=== PATIENT | female | born 1970 | race Caucasian/White ===

== ENCOUNTER 2017-01-01 10:22 | Outpatient (CLI) | payer OTHER | END 2017-01-01 10:23 | disposition home or self-care (01) | DX: E05.00 Thyrotoxicosis with diffuse goiter without thyrotoxic crisis or storm (principal) ==

== ENCOUNTER 2017-11-19 20:03 | Outpatient (CLI) | payer OTHER ==
--- NOTE | 2017-11-20 10:42 | Ultrasound Report ---
PELVIC ULTRASOUND: 11/19/2017 CLINICAL INDICATION: Pain. COMPARISON: 09/30/2015. TECHNIQUE: Transabdominal pelvic ultrasound performed for global evaluation. Transvaginal pelvic ultrasound performed for detailed evaluation. Real-time scanning performed and static images obtained. FINDINGS: The uterus is anteverted, measuring 9.8 x 6.1 x 5.0 cm. The endometrial echo complex measures 8 mm. No focal myometrial lesion is present. The right ovary measures 3.1 x 1.7 x 1.7 cm, and appears unremarkable. The left ovary measures 3.0 x 2.5 x 1.9 cm, and demonstrates a follicle. No free fluid is present. IMPRESSION: INCIDENTAL LEFT OVARIAN FOLLICLE. TD: 11/20/2017 10:40
== END 2017-11-19 20:04 | disposition home or self-care (01) ==
LOC: DI 20:03
PROVIDERS: ATTEND Nurse Practitioner Obstetrics & Gynecology
DX: R10.2 Pelvic and perineal pain (principal)
CPT/HCPCS: 76830; 76856

== ENCOUNTER 2017-12-18 16:55 | Outpatient (CLI) | payer OTHER | END 2017-12-18 16:56 | disposition home or self-care (01) | LOC: LAB.R 16:55 | PROVIDERS: ATTEND Nurse Practitioner Obstetrics & Gynecology | DX: N89.8 Other specified noninflammatory disorders of vagina (principal) | CPT/HCPCS: 87480; 87510; 87660 ==

== ENCOUNTER 2017-12-26 09:25 | Outpatient (CLI) | payer OTHER ==
--- NOTE | 2017-12-27 10:00 | Mammography Report ---
DIGITAL SCREENING MAMMOGRAM: 12/26/2017 HISTORY: Routine. Asymmetric breast size, larger on the left. COMPARISON: 07/24/2011. TECHNIQUE: Bilateral digital CC, exaggerated CC, and MLO projections. FINDINGS: The breast tissue is heterogeneously dense. There are no suspicious calcifications, dominant mass, skin thickening. On the left, no architectural distortion. On the right CC view, there is an area of possible architectural distortion in the subareolar breast not confirmed on the exaggerated CC or MLO projection. This most likely represents superimposition of soft tissues, but further evaluation by a true lateral and spot compression views is suggested. IMPRESSION: 1. NEGATIVE LEFT BREAST. BI-RADS CATEGORY 1 - NEGATIVE. 2. NEEDS ADDITIONAL EVALUATION RIGHT BREAST. BI-RADS CATEGORY 0 - NEEDS ADDITIONAL IMAGING EVALUATION. STANDARD QUALIFYING STATEMENTS: 1. This examination was reviewed with the aid of Computer-Aided Detection (CAD). 2. A negative or benign imaging report should not delay biopsy if clinically suspicious findings are present. Consider surgical consultation if warranted. More than 5% of cancers are not identified by imaging. 3. Dense breasts may obscure an underlying neoplasm. TD: 12/27/2017 09:59
== END 2017-12-26 09:26 | disposition home or self-care (01) ==
LOC: DI.S 09:25
PROVIDERS: ATTEND Nurse Practitioner Obstetrics & Gynecology
DX: Z12.39 Encounter for other screening for malignant neoplasm of breast (principal); R92.8 Other abnormal and inconclusive findings on diagnostic imaging of breast
CPT/HCPCS: 77067

== ENCOUNTER 2017-12-26 10:15 | Outpatient (CLI) | payer OTHER ==
[2017-12-26 18:14] LABS: THYROID STIMULATING HORMONE 1.4 uIU/mL (0.34-5.60)
[2017-12-26 18:16] LABS: FREE T4 (FREE THYROXINE) 1.05 ng/dL (0.58-1.64)
== END 2017-12-26 10:16 | disposition home or self-care (01) ==
LOC: LAB.F 10:15
PROVIDERS: ATTEND Nurse Practitioner Family
DX: E05.00 Thyrotoxicosis with diffuse goiter without thyrotoxic crisis or storm (principal)
CPT/HCPCS: 36415; 84439; 84443; 84481

== ENCOUNTER 2017-12-31 10:56 | Emergency (ER) | payer OTHER ==
[2017-12-31 11:22] LABS: BILIRUBIN,URINE NEGATIVE (NEGATIVE); GLUCOSE, URINE (UA) NEGATIVE (NEGATIVE); KETONES,URINE (UA) 15 mg/dL (NEGATIVE); LEUKOCYTE ESTERASE, URINE NEGATIVE (NEGATIVE); NITRITE,URINE NEGATIVE (NEGATIVE); OCCULT BLOOD,URINE SMALL (NEGATIVE); PROTEIN,URINE NEGATIVE (NEGATIVE); UROBILINOGEN,URINE 0.2 (NORMAL) E.U./dL (NORMAL)
[2017-12-31 11:24] LABS: CLARITY,URINE CLEAR (CLEAR); HCG UR QUAL NEGATIVE
[2017-12-31 11:44] LABS: BASOPHILS % (AUTO) 0.2 %; HGB - HEMOGLOBIN 13.4 g/dL (12.0-16.0); LYMPHOCYTES # (AUTO) 1.3 10^3/uL (1.5-3.5); LYMPHOCYTES % (AUTO) 7.9 %; MEAN CORPUSCULAR HEMOGLOBIN 29.3 pg (27.0-31.0); MEAN CORPUSCULAR HGB CONC 33.5 g/dL (32.0-36.0); MEAN CORPUSCULAR VOLUME 87.5 fL (81.0-99.0); MEAN PLATELET VOLUME 10.1 fL (7.9-10.8); MONOCYTES # (AUTO) 1.1 10^3/uL (0.0-1.0); MONOCYTES % (AUTO) 7.1 %; NEUTROPHILS # (AUTO) 13.7 10^3/uL (1.5-6.6); NEUTROPHILS % (AUTO) 84.8 %; PLT - PLATELET COUNT 179 10^3/uL (130-450); RED BLOOD COUNT 4.58 10^6/uL (4.20-5.40); RED CELL DISTRIBUTION WIDTH 15.4 % (12.0-15.0); WHITE BLOOD COUNT 16.1 x10^3/uL (4.8-10.8)
[2017-12-31 11:58] LABS: BACTERIA,URINE Rare /HPF (None Seen); RBC,URINE 0-5 /HPF (0-5); SQUAMOUS EPITHELIAL CELL,UR RARE Squamous (<= Few)
[2017-12-31 12:02] LABS: ALBUMIN 4.7 g/dL (3.2-5.5); ALBUMIN/GLOBULIN RATIO 1.4 (1.0-2.2); BILIRUBIN,TOTAL 0.9 mg/dL (0.2-1.0); CALCIUM 10.1 mg/dL (8.5-10.3); CREATININE 0.7 mg/dL (0.4-1.0); TOTAL PROTEIN 8.1 g/dL (6.7-8.2)
--- NOTE | 2017-12-31 13:51 | ED Physician Documentation ---
PD HPI ABD PAIN - Stated complaint Stated Complaint: LEFT SIDE PX - Chief complaint Chief Complaint: Abd Pain - History obtained from History obtained from: Patient - History of Present Illness Timing - onset: Yesterday Timing - duration: Days Timing - details: Gradual onset, Still present, Waxing and waning Quality: Cramping, Aching, Pain Location: LLQ Radiation: Lower back, Left flank Associated symptoms: No: Fever, Nausea, Vomiting, Dysuria, Loss of appetite Similar symptoms before: No diagnosis (has had evaluation of lower/left abd pain with U/S and endoscopy. No Dx. Seen by PCP 1 1/2 weeks ago and had pelvic with culture results showing BV. Had not noted vag discharge.) Recently seen: Clinic (12/19 had eval with pelvic exam and Dx with gardnerella/ BV. had Rx for Flagyl to pharmacy and she was going to pick it up today.) Review of Systems Constitutional: reports: Myalgias. denies: Fever, Chills Nose: denies: Rhinorrhea / runny nose, Congestion Throat: denies: Sore throat Cardiac: denies: Chest pain / pressure Respiratory: denies: Cough GI: reports: Abdominal Pain, Nausea. denies: Vomiting, Constipation, Diarrhea : denies: Dysuria, Frequency, Discharge, Missed period Skin: denies: Rash, Lesions Neurologic: reports: Generalized weakness. 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 - Present Medications Home Medications: Ambulatory Orders Medication Instructions Recorded Confirmed HYDROcod/ACETAM 5/325 [[place] 5/325] 1 - 2 ea PO Q6H PRN #15 tablet 09/26/15 Levothyroxine [Synthroid] 137 mcg PO DAILY 09/26/15 09/26/15 HYDROcod/ACETAM 5/325 [[place] 5/325] 1 tab PO Q6H PRN #15 tablet 12/31/17 Ondansetron Odt [Zofran] 4 mg TL Q6H PRN #15 tablet 12/31/17 - Allergies Allergies/Adverse Reactions: Allergies Allergy/AdvReac Type Severity Reaction Status Date / Time Penicillins Allergy Rash Verified 09/26/15 13:30 - Social History Does the pt smoke?: Yes Smoking Status: Current every day smoker Does the pt drink ETOH?: Yes Does the pt have substance abuse?: Yes - Family History Family history: reports: Non contributory PD ED PE NORMAL - Vitals Vital signs reviewed: Yes - General General: Alert and oriented X 3, Well developed/nourished, Other (in some discomfort) - HEENT HEENT: Ears normal, Pharynx benign - Neck Neck: Supple, no meningeal sign, No adenopathy - Cardiac Cardiac: RRR, No murmur - Respiratory Respiratory: No respiratory distress - Abdomen Abdomen: Normal bowel sounds, Soft, Non distended, No organomegaly, Other ( tender left lower without guarding nor percussion tenderness. No rebound. ) - Female Female : Deferred (was done in office 1 1/2 weeks ago with Dx Gardnerella/BV) - Derm Derm: Normal color, Warm and dry, No rash - Extremities Extremities: No tenderness to palpate, Normal ROM s pain, No edema, No calf tenderness / cord - Psych Psych: Normal mood, Normal affect Results - Vitals Vitals: Oxygen O2 Source Room air - Labs Labs: Laboratory Tests 12/31/17 12/31/17 12/31/17 11:10 11:41 11:41 WBC 16.1 H RBC 4.58 Hgb 13.4 Hct 40.1 MCV 87.5 MCH 29.3 MCHC 33.5 RDW 15.4 H Plt Count 179 MPV 10.1 Neut # 13.7 H Lymph # 1.3 L [place] # 1.1 H Eos # 0.0 Baso # 0.0 Absolute Nucleated RBC 0.00 Nucleated RBC % 0.0 Sodium 131 L Potassium 3.5 Chloride 100 L Carbon Dioxide 23 Anion Gap 8.0 BUN 8 Creatinine 0.7 Estimated GFR (MDRD) 90 Glucose 126 H Calcium 10.1 Total Bilirubin 0.9 AST 19 ALT 12 Alkaline Phosphatase 52 Total Protein 8.1 Albumin 4.7 Globulin 3.4 Albumin/Globulin Ratio 1.4 Lipase 18 L Urine Color YELLOW Urine Clarity CLEAR Urine pH 6.0 Ur Specific [place] 1.010 Urine Protein NEGATIVE Urine Glucose (UA) NEGATIVE Urine Ketones 15 H Urine Occult Blood SMALL H Urine Nitrite NEGATIVE Urine Bilirubin NEGATIVE Urine Urobilinogen 0.2 (NORMAL) Ur Leukocyte Esterase NEGATIVE Urine RBC 0-5 Urine WBC 0-3 Ur Squamous Epith Cells RARE Squamous Urine Bacteria Rare Ur Microscopic Review INDICATED Urine Culture Comments NOT INDICATED Urine HCG, Qual NEGATIVE - Rads (name of study) abd/pelvic CT Radiology: Prelim report reviewed (left fallopian tube thickening and swelling. No abscess. Colon normal. ) PD MEDICAL DECISION MAKING - ED course Complexity details: re-evaluated patient (improved with pain meds and fluids. ) , considered differential (she had pelvic in office and was Dx with BV. Her pain was higher left abd so concern for colonic cause or even with abscess. CT showed the PID. ), d/w patient Departure - Departure Disposition: 01 Home, Self Care Clinical Impression: Pelvic infection in female Abdominal pain Qualifiers: Abdominal location: left lower quadrant Qualified Code(s): R10.32 - Left lower quadrant pain Condition: Stable Record reviewed to determine appropriate education?: Yes Instructions: Abdominal Pain, ED PID, ED Vaginosis Bacterial Follow-Up: Soheila Roe ARNP [Primary Care Provider] - Prescriptions: HYDROcod/ACETAM 5/325 [[place] 5/325] 1 tab PO Q6H PRN #15 tablet PRN Reason: Pain Ondansetron Odt [Zofran] 4 mg TL Q6H PRN #15 tablet PRN Reason: Nausea / Vomiting Comments: The CT scan showed swelling of the tube and pelvis area on the left particularly but a little on both sides. This would be consistent with the vaginitis infection and involving the uterus and tubes as well. Get the metronidazole prescription your given and take it twice daily as directed. Add ondansetron if needed for nausea and hydrocodone if needed for pain. Recheck if not improving over the next 2-3 days. Discharge Date/Time: 12/31/17 17:23
[2017-12-31] MEDS ORDERED: HYDROmorphone 1 MG/ML CARPUJECT IVP STA ×2 (14:07→16:17)
[2017-12-31] MEDS ORDERED: SODIUM CHLORIDE 0.9% 1,000 ML IV ONE (14:07)
[2017-12-31] MEDS ORDERED: metroNIDAZOLE 500 MG/100 ML 500 MG/100 ML BAG IV ONE (14:07)
[2017-12-31] MEDS ORDERED: KETOROLAC 60 MG/2 ML VIAL IVP STA (14:07)
[2017-12-31] MEDS ORDERED: ONDANSETRON 4 MG/2 ML VIAL IVP STA (14:08)
[2017-12-31] MEDS ORDERED: IOPAMIDOL-300 100 ML VIAL ONE (14:32)
[2017-12-31] MEDS ORDERED: IOPAMIDOL-300 100 ML VIAL IVP ONE (14:40)
--- NOTE | 2017-12-31 16:11 | CT Report ---
EXAM: CT ABDOMEN AND PELVIS EXAM DATE: 12/31/2017 02:50 PM. CLINICAL HISTORY: Left lower abd pain for couple days. COMPARISONS: 09/26/2015 None. TECHNIQUE: Routine helical CT imaging was performed through the abdomen and pelvis. IV contrast: ISOV UE 300 100mL. Enteric contrast: No. Reconstructions: Coronal and sagittal. In accordance with CT protocol optimization, one or more of the following dose reduction techniques w ere utilized for this exam: automated exposure control, adjustment of mA and/or KV based on patient s ize, or use of iterative reconstructive technique. FINDINGS: Lung Bases: Unremarkable. Liver: Normal. No masses. Gallbladder/Bile Ducts: Unremarkable. Spleen: Normal. Pancreas: Normal. Adrenal Glands: Normal. Kidneys: Normal. No masses or hydronephrosis. Peritoneal Cavity/Bowel: No free fluid, free air or adenopathy. No masses. There is scattered coloni c diverticulosis. The appendix is not definitely seen. Pelvic Organs: The bladder is unremarkable. The left greater than right fallopian tubes are dilated a nd fluid-filled with mild wall enhancement. On the left there is increased density in the fat adjacen t to the tube consistent with inflammation 3:60 through 72. Vasculature: No aneurysms or other significant abnormality. Bones: No significant abnormality. Other: None. IMPRESSION: Left greater than right fluid filled dilated fallopian tubes with adjacent inflammation o n the left. Findings are worrisome for hydro/pyosalpinx. Scattered colonic diverticulosis without div erticulitis. Otherwise negative abdomen and pelvic CT. [facility] Referring Provider Line: [phone] SITE ID: [id number]
[2017-12-31] MEDS ORDERED: cefTRIAXone 1 GM in SODIUM CHLORIDE 0.9% MINIBAG 100 ML IV STA (16:17)
[2017-12-31 17:23] VITALS: BP 135/80
== END 2017-12-31 17:23 | disposition home or self-care (01) ==
LOC: ED 10:56
DX: N73.9 Female pelvic inflammatory disease, unspecified (principal); R10.32 Left lower quadrant pain
CPT/HCPCS: 36415; 74177; 80053; 81001; 81025; 83690; 85025; 96361; 96365; 96375; 96376; 99283; J1170; Q9967; 81003; 87086

== ENCOUNTER 2018-01-03 13:59 | Inpatient (IN) | payer OTHER ==
[2018-01-03] MEDS ORDERED: SODIUM CHLORIDE 0.9% 1,000 ML IV ONE (14:32)
[2018-01-03] MEDS ORDERED: ONDANSETRON 4 MG/2 ML VIAL IVP STA (14:32)
[2018-01-03] MEDS ORDERED: HYDROmorphone 1 MG/ML CARPUJECT IVP STA (14:32)
[2018-01-03 14:37] LABS: BILIRUBIN,URINE NEGATIVE (NEGATIVE); GLUCOSE, URINE (UA) NEGATIVE (NEGATIVE); KETONES,URINE (UA) TRACE mg/dL (NEGATIVE); LEUKOCYTE ESTERASE, URINE SMALL (NEGATIVE); NITRITE,URINE NEGATIVE (NEGATIVE); OCCULT BLOOD,URINE TRACE-INTA (NEGATIVE); PROTEIN,URINE NEGATIVE (NEGATIVE); UROBILINOGEN,URINE 0.2 (NORMAL) E.U./dL (NORMAL)
--- NOTE | 2018-01-03 14:38 | ED Physician Documentation ---
PD HPI ABD PAIN - Stated complaint Stated Complaint: LEFT SIDE PX - Chief complaint Chief Complaint: Abd Pain - History obtained from History obtained from: Patient, Family - History of Present Illness Timing - onset: Other (This is a monogamous 47-year-old woman who was seen in the office for bacterial vaginosis, she had increasing pelvic pain and was seen here 4 days ago, she was given Rocephin and a CT scan was done showing potential hydro-or pyosalpinx. Her white count at the time was 16. She was taking Flagyl which she continues to do but the pain worsens and especially in the left pelvis. She has been vomiting but the nausea is actually better today. She has some clearish vaginal discharge.) Review of Systems Ten Systems: 10 systems reviewed and negative Constitutional: reports: Fatigue. 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 - Present Medications Home Medications: Ambulatory Orders Medication Instructions Recorded Confirmed Levothyroxine [Synthroid] 137 mcg PO QDAC 09/26/15 01/03/18 Metoclopramide [Reglan] 10 mg PO ACHS 01/03/18 01/03/18 Omeprazole 20 mg PO BIDAC 01/03/18 01/03/18 - Allergies Allergies/Adverse Reactions: Allergies Allergy/AdvReac Type Severity Reaction Status Date / Time Penicillins Allergy Rash Verified 09/26/15 13:30 - Social History Does the pt smoke?: Yes Smoking Status: Current every day smoker Does the pt drink ETOH?: Yes Does the pt have substance abuse?: Yes - Family History Family history: reports: Non contributory PD ED PE NORMAL - Vitals Vital signs reviewed: Yes - General General: Alert and oriented X 3, No acute distress - HEENT HEENT: PERRL, EOMI - Neck Neck: Supple, no meningeal sign, No bony TTP - Cardiac Cardiac: RRR, No murmur - Respiratory Respiratory: No respiratory distress, Clear bilaterally - Abdomen Abdomen: Other (Tender in the left pelvis) - Female Female : Deferred (See medical decision making, Dr. Garrison will come in and see the patient.) - Back Back: No CVA TTP, No spinal TTP - Derm Derm: Normal color, Warm and dry - Extremities Extremities: No edema, No calf tenderness / cord - Neuro Neuro: Alert and oriented X 3, Normal speech - Psych Psych: Normal mood, Normal affect Results - Vitals Vitals: Vital Signs - 24 hr 01/03/18 01/03/18 14:06 17:26 Temperature 36.9 C 37.3 C Heart Rate 119 H 85 Respiratory 17 14 Rate Blood Pressure 135/94 H 124/73 O2 Saturation 99 97 Oxygen O2 Source Room air - Labs Labs: Microbiology 01/03/18 16:50 Wet Prep - Final Cervix Laboratory Tests 01/03/18 01/03/18 01/03/18 14:15 14:15 14:49 WBC 7.6 RBC 3.91 L Hgb 11.6 L Hct 34.3 L MCV 87.6 MCH 29.8 MCHC 34.0 RDW 15.1 H Plt Count 172 MPV 10.5 Neut # 5.8 Lymph # 1.1 L [place] # 0.6 Eos # 0.0 Baso # 0.0 Absolute Nucleated RBC 0.00 Nucleated RBC % 0.0 Sodium Potassium Chloride Carbon Dioxide Anion Gap BUN Creatinine Estimated GFR (MDRD) Glucose Calcium Total Bilirubin AST ALT Alkaline Phosphatase Total Protein Albumin Globulin Albumin/Globulin Ratio Lipase Urine Color YELLOW Urine Clarity CLEAR Urine pH 6.0 Ur Specific [place] 1.015 1.015 Urine Protein NEGATIVE Urine Glucose (UA) NEGATIVE Urine Ketones TRACE Urine Occult Blood TRACE-INTA Urine Nitrite NEGATIVE Urine Bilirubin NEGATIVE Urine Urobilinogen 0.2 (NORMAL) Ur Leukocyte Esterase SMALL H Urine RBC 0-5 Urine WBC 6-10 H Ur Squamous Epith Cells MOD Squamous H Urine Bacteria None Seen Urine Mucus Few Strands Ur Microscopic Review INDICATED Urine Culture Comments NOT INDICATED Urine HCG, Qual NEGATIVE 01/03/18 14:49 WBC RBC Hgb Hct MCV MCH MCHC RDW Plt Count MPV Neut # Lymph # [place] # Eos # Baso # Absolute Nucleated RBC Nucleated RBC % Sodium 133 L Potassium 3.2 L Chloride 103 Carbon Dioxide 24 Anion Gap 6.0 BUN 5 L Creatinine 0.6 Estimated GFR (MDRD) 107 Glucose 121 H Calcium 9.3 Total Bilirubin 0.5 AST 11 ALT 10 Alkaline Phosphatase 47 Total Protein 6.7 Albumin 3.7 Globulin 3.0 Albumin/Globulin Ratio 1.2 Lipase 27 Urine Color Urine Clarity Urine pH Ur Specific [place] Urine Protein Urine Glucose (UA) Urine Ketones Urine Occult Blood Urine Nitrite Urine Bilirubin Urine Urobilinogen Ur Leukocyte Esterase Urine RBC Urine WBC Ur Squamous Epith Cells Urine Bacteria Urine Mucus Ur Microscopic Review Urine Culture Comments Urine HCG, Qual - Rads (name of study) Pelvic sono Radiology: Prelim report reviewed (Bilateral tubal fluid collections,) PD MEDICAL DECISION MAKING - ED course ED course: 47-year-old woman with apparent PID, potential tubo-ovarian abscess based on previous imaging who has failed outpatient treatment. I spoke with Dr. Garrison, the on-call brake repair supervisor run 2:35 PM and he will come and see the patient, request labs and ultrasound in the interim. After his evaluation he requested cefoxitin and doxycycline which were ordered by me, he plans to take the patient to the operating room for definitive evaluation and treatment. Departure - Departure Disposition: ED Transfer to [facility] Clinical Impression: PID (acute pelvic inflammatory disease), TOA (tubo-ovarian abscess) Condition: Stable Discharge Date/Time: 01/03/18 18:25
[2018-01-03 14:41] LABS: CLARITY,URINE CLEAR (CLEAR); HCG UR QUAL NEGATIVE
[2018-01-03 15:05] LABS: BASOPHILS % (AUTO) 0.3 %; EOSINOPHILS % (AUTO) 0.3 %; HGB - HEMOGLOBIN 11.6 g/dL (12.0-16.0); LYMPHOCYTES # (AUTO) 1.1 10^3/uL (1.5-3.5); LYMPHOCYTES % (AUTO) 14.3 %; MEAN CORPUSCULAR HEMOGLOBIN 29.8 pg (27.0-31.0); MEAN CORPUSCULAR VOLUME 87.6 fL (81.0-99.0); MEAN PLATELET VOLUME 10.5 fL (7.9-10.8); MONOCYTES # (AUTO) 0.6 10^3/uL (0.0-1.0); MONOCYTES % (AUTO) 7.8 %; NEUTROPHILS # (AUTO) 5.8 10^3/uL (1.5-6.6); NEUTROPHILS % (AUTO) 77.3 %; PLT - PLATELET COUNT 172 10^3/uL (130-450); RED BLOOD COUNT 3.91 10^6/uL (4.20-5.40); RED CELL DISTRIBUTION WIDTH 15.1 % (12.0-15.0); WHITE BLOOD COUNT 7.6 x10^3/uL (4.8-10.8)
[2018-01-03 15:11] LABS: ALBUMIN 3.7 g/dL (3.2-5.5); ALBUMIN/GLOBULIN RATIO 1.2 (1.0-2.2); BILIRUBIN,TOTAL 0.5 mg/dL (0.2-1.0); CALCIUM 9.3 mg/dL (8.5-10.3); CREATININE 0.6 mg/dL (0.4-1.0); TOTAL PROTEIN 6.7 g/dL (6.7-8.2)
[2018-01-03 15:22] LABS: BACTERIA,URINE None Seen /HPF (None Seen); MUCUS,URINE Few Strands; RBC,URINE 0-5 /HPF (0-5); SQUAMOUS EPITHELIAL CELL,UR MOD Squamous (<= Few)
[2018-01-03] MEDS ORDERED: cefOXitin 2 GM in SODIUM CHLORIDE 0.9% MINIBAG 100 ML IV STA (16:24)
[2018-01-03] MEDS ORDERED: DOXYCYCLINE INJ 100 MG in SODIUM CHLORIDE 0.9% MINIBAG 100 ML IV STA (16:25)
[2018-01-03] MEDS ORDERED: BUPIVACAINE 0.5%-EPI 1:200000 PF 10 ML VIAL ONE ×2 (17:37→20:42)
[2018-01-03] MEDS ORDERED: METHYLENE BLUE 0.5% 50 MG/10 ML AMPULE ONE (17:37)
[2018-01-03] MEDS ORDERED: LACTATED RINGERS 1,000 ML IV ONE ×4 (18:30→22:50)
[2018-01-03] MEDS ORDERED: fentaNYL 250 MCG/5 ML VIAL IVP ONE (19:00)
[2018-01-03] MEDS ORDERED: MORPHINE 10 MG/ML VIAL IVP ONE (19:00)
[2018-01-03] MEDS ORDERED: LIDOCAINE-MPF 2% 5 ML VIAL IM ONE (19:00)
[2018-01-03] MEDS ORDERED: ROCURONIUM 50 MG/5 ML VIAL IVP ONE (19:00)
[2018-01-03] MEDS ORDERED: PROPOFOL 200 MG/20 ML VIAL IVP ONE (19:00)
[2018-01-03] MEDS ORDERED: BUPIVACAINE 0.25%-EPI 1:200000 PF 30 ML VIAL SUBQ ONE (21:08)
[2018-01-03] MEDS ORDERED: ESTROGENS, CONJUGATED CREAM 30 GM TUBE VG ONE (21:08)
[2018-01-03] MEDS ORDERED: ESTROGENS, CONJUGATED CREAM 30 GM TUBE ONE (21:53)
--- NOTE | 2018-01-03 22:08 | HISTORY & PHYSICAL EXAMINATION ---
DATE OF SERVICE: 01/03/2018 Physician: Deric Garrison MD EMERGENCY ROOM CONSULTATION AND ADMIT HISTORY AND PHYSICAL EXAMINATION REQUESTING CONSULTATION: Manny Underwood MD, emergency department. DIAGNOSES 1. Severe left lower quadrant pain. 2. Pyosalpinx. 3. Uterine and generalized pelvic tenderness. 4. Associated nausea. INTENDED PROCEDURES 1. Laparoscopy, followed by LAVH and possible BSO. 2. Placement of abdominal drain. 3. Cystoscopy. HISTORY OF PRESENT ILLNESS: Patient is a 47-year-old 3, para 3 woman ( status post x2), who reports to the emergency room complaining of severe pelvic pain, predominantly left-sided, and associated nausea. She reports night sweats and low grade fever. She has anorexia and the last time she ate or drank anything was at 10 a.m. She was originally evaluated by Brielle Chaparro for vaginal discharge. It was presumed to be bacterial vaginosis and was treated with Flagyl. This was ineffective and her symptoms steadily escalated. On the 30 of December, she was seen in the ED for pelvic pain. CT showed potential hydrosalpinx/pyosalpinx, with a white count of 16. She was given Rocephin plus continued oral Flagyl. She notes nausea for the last few days and had nonbloody , nonbilious vomiting. She reports a nonfoul vaginal discharge, but no recent uterine bleeding. PAST SURGICAL HISTORY: section as noted above. Denies any abdominal, GI or urologic surgery. PAST MEDICAL HISTORY: Graves disease, well controlled with Synthroid. Gastroparesis w endoscopy. ALLERGIES 1. PENICILLIN. 2. SENSITIVE TO LATEX. MEDICATIONS 1. Levothyroxine 137 mcg q day AC. 2. Reglan 10 mg p.o. REVIEW OF SYSTEMS CONSTITUTIONAL: Positive night sweats, fevers, low grade fever, and fatigue. CARDIOVASCULAR: Denies chest pain, pressure, or palpitations. RESPIRATORY: Denies dyspnea, cough. GASTROINTESTINAL: Nausea and vomiting, but no diarrhea. Abdominal pain as noted before. UROLOGIC: Denies stress urinary incontinence or evidence of UTI. MUSCULOSKELETAL: Negative. No swelling or swollen joints. NEUROLOGIC: Negative. Occasional headache. LYMPHATIC: Negative. SKIN: Negative. FAMILY HX: Noncontributary SOCIAL HX: PHYSICAL EXAMINATION GENERAL: The patient lying still in bed, uncomfortable. VITAL SIGNS: Temperature 36.9, heart rate 119, respirations 117, blood pressure 135/94, saturation 99. HEENT: Supple neck. No thyromegaly or thyroid tenderness. Dentition in repair. LUNGS: Clear to auscultation. CARDIAC: Regular flow murmur, tachycardic. No rub or gallop. ABDOMEN: No hepatosplenomegaly. Left lower quadrant tenderness, moderate to severe. Peritoneal signs. Right lower quadrant tenderness, mild. No obvious herniation. No CVA tenderness. GENITOURINARY: External genitalia, no lesions. VAGINA: No blood but a pool of copious yellow, foul pus in a posterior fornix. CERVIX: No lesions, cervical motion tenderness. UTERUS: Enlarged 7 weeks size, very tender & fixed. ADNEXA: The left adnexal tenderness not as much on the right. RECTOVAGINAL: Exam not done. PSYCHIATRIC: Normal mood, in pain. NEUROLOGIC: Alert, oriented, normal speech. Moves all 4 extremities well. No evident numbness. EXTREMITIES: No edema, calf tenderness, or cord. DERMATOLOGIC: No obvious rash. Warm, dry. LABORATORY DATA: Current: Sodium low at 133, potassium 3.2, glucose 121, creatinine 0.6. Urine pending. Hemoglobin 11.6, white count 7.6, platelets 172. ASSESSMENT: The patient has, in all likelihood, pelvic abscess and possibly ruptured on the left. Antibiotics alone will be ineffective. CT and ultrasound document the abscesses. Best course of action is surgical. At very minimum, tubes must be removed and possibly left ovary. Given that her uterus is very tender and there is copious pus per cervix, hysterectomy would benefit and prevent second surgery. I recommended to place a drainage tube into the pelvis as well. Delay in surgery increases chances of septic shock & possible . PLAN: I explained stepwise progression of treatment to the patient. She strongly favors a hysterectomy because she, "I don't want to come back again." Her pain has been a major burden. Risks of surgery were explained, inclusive of anesthesia reaction, blood loss, transfusion, continued infection or spread of infection, and damage to bowels and urinary tract. The patient realizes that excision and drainage is preferred method of treating abscess. She also is aware that if this is ineffectual, we may move her to a higher level of care. NOTE TO [facility]: I do not anticipate the patient to stay more than 96 hours. IV antibiotics have already been started. TD: 01/03/2018 22:07 JULIANNA
[2018-01-03] MEDS ORDERED: ONDANSETRON 4 MG/2 ML VIAL ONE (22:20)
[2018-01-03] MEDS ORDERED: ACETAMINOPHEN 1,000 MG/100 ML 100 ML IV ONE (22:35)
[2018-01-03] MEDS ORDERED: ZOLPIDEM 5 MG TABLET PO PRN (22:49)
[2018-01-03] MEDS ORDERED: SCOPOLAMINE PATCH TOP SCH (23:00)
[2018-01-03] MEDS ORDERED: AMPICILLIN/SULBACTAM 3 GM in SODIUM CHLORIDE 0.9% MINIBAG 100 ML IV SCH (23:00)
[2018-01-03] MEDS ORDERED: KETOROLAC 30 MG/ML VIAL IVP SCH (23:00)
--- NOTE | 2018-01-03 23:22 | OPERATIVE REPORT ---
Operative Report - General Procedure Date: 01/03/18 Planned Procedure: Diagnostic laparoscopy with probable bilateral salpingo- oophorectomy and LA Pre-Op Diagnosis: Severe left lower quadrant and pelvic pain; probable tubal abscesses; Procedure Performed: Laparoscopic assisted vaginal hysterectomy with bilateral salpingo-oophorectomy ; placement of pelvic vaginal drain; cystoscopy Post Op Diagnosis: Ruptured bilateral tubal abscesses with free pus in the abdomen; extensive - Procedure Note Primary Surgeon: Deric Garrison MD Secondary Surgeon: Deric Ramirez MD Anesthesia Provider: Efrain Nettles MD Anesthesia Technique: General ET tube Pathology: Tubes, uterus, and multiple cultures IV Fluids (mL): 2,100 Estimated Blood Loss (mL): 400 Urine Output (mL): 1,000 Drain/Tube Type: T-tube (vaginal T-tube to suction bulb; Ferreira catheter) Complications: None
[2018-01-03] MEDS ORDERED: GENTAMICIN PER PHARMACY (DO NOT LOAD) IV SCH (23:45)
[2018-01-04] MEDS ORDERED: SODIUM CHLORIDE 0.9% IV SCH ×2
[2018-01-04] MEDS ORDERED: GENTAMICIN IV SCH ×2
[2018-01-04] MEDS: LACTATED RINGERS 1,000 ML IV SCH ×4 (00:02→22:29)
[2018-01-04] MEDS: LEVOTHYROXINE 125 MCG TABLET PO SCH ×2 (00:49→09:14)
[2018-01-04] MEDS ORDERED: GENTAMICIN 80 MG/2 ML VIAL ONE (01:26)
[2018-01-04] MEDS: oxyCODONE 5 MG TABLET PO PRN ×2 (02:16→09:36)
--- NOTE | 2018-01-04 02:19 | OPERATIVE REPORT ---
DATE OF SERVICE: 01/03/2018 Physician: Deric Garrison MD PREOPERATIVE DIAGNOSES 1. Severe left lower quadrant and pelvic pain. 2. Pyosalpinx. 3. Prior sections x3. 4. Gastroparesis. 5. Graves disease. POSTOPERATIVE DIAGNOSES 1. Ruptured bilateral tubal abscesses with free pus in the abdomen. 2. Extensive adhesions. NAME OF PROCEDURE 1. Laparoscopic-assisted vaginal hysterectomy with bilateral salpingo- oophorectomy. 2. Placement of pelvic floor drain, exiting the vagina. 3. Cystoscopy. 4. Lavage of the abdominal and pelvic contents. 5. Lysis of dense and extensive adhesions PRIMARY SURGEON: Deric Garrison MD, FACOG, FICS SECOND SURGEON: Deric Saenz MD, FACOG, TACKER OFF: Efrain Nettles MD ANESTHESIA TYPE: General, ET tube placed. PATHOLOGY: Tubes, uterus and ovaries sent to Pathology with multiple cultures. IV FLUIDS: 2100. ESTIMATED BLOOD LOSS: 400. ESTIMATED URINE OUTPUT: 1000. DRAINS 1. Ferreira. 2. T-tube placed through vagina, draining the pelvic cavity, attached to bulb suction. COMPLICATIONS: None. FINDINGS: External genitalia finds no lesions. In the posterior fornix of the vagina, there is a pool of foul-smelling pus. There is cervical motion tenderness and uterine tenderness. Uterus is fixed. There is a mass in the left adnexa that is very tender with peritoneal signs. Right adnexa also is tender. Reference H and P. At the time of laparoscopy, there is extensive pelvic inflammatory disease and abscesses. The left ovary was completely encased in bulbous abscess, including the tube and pelvic side wall and portions of the colon. There are multiple loculations of pus in the anterior and posterior cul-de-sac. There are adhesions forming the block on the left side and similar problem on the right. There is free pus flowing from both tubes. The uterus is pale and patulous. The liver has fatty changes. There is no Bgge-Nyrq-Ryhenp. Appendix appears normal without inflammation. Cystoscopy confirms free right and left urine flow from the ureteral orifices. There is no incursion into the bladder. TECHNIQUE: Prior to the procedure, I reviewed my working diagnosis of being pelvic abscesses and proposed surgical procedures to the patient and her . She is aware of the possibility of blood loss, transfusion, continued infection, prolonged hospitalization, ICU admission or transfer, damage to adjacent structures such as intestine or urinary tract and anesthesia reaction. These risks were enumerated and explained. Conservative therapy with more antibiotics poses a danger of sepsis and extremely poor outcome. We discussed a limited surgical intervention, but given the clinical exam, the patient desires complete therapy. Informed consent was signed and witnessed. The patient was brought to the operating room and placed on the table in the supine position. She was uneventfully induced and intubated. She was moved to the [facility] She was prepped and draped in the customary sterile fashion and Ferreira was placed. A timeout procedure was done per protocol. A HUMI uterine manipulator then was placed. A small incision was placed under the umbilical skin fold, and the 5 mm Visiport trocar was driven into the abdomen uneventfully under direct visualization. The abdomen was then insufflated with CO2 gas at 12 mm. Next, right and left 5 mm trocars were inserted. A curtain of omental adhesions adherent to the anterior abdominal wall was then desiccated and divided to provide better access. There was free pus in the anterior cul-de-sac, which was suctioned and sent for culture. Additionally, there was pus in the right and left adnexal areas. We began the procedure with a left salpingo-oophorectomy. Using a LigaSure and blunt dissection, the adherent tubal structures and ovary were lysed off of the pelvic sidewall. Once mobilized, the ovarian vessels and infundibulopelvic ligament were doubly desiccated and divided. We began a stepwise approach down towards the round ligament. The anatomy was quite distorted. We traced the ureter along the left pelvic sidewall. A small feeding vessel was noted, was desiccated and divided. Eventually, we mobilized the tubal abscess complex up and out of the path of dissection. The RLQ port was then converted to 10-12 mm and a catch bag used to remove the L tubo-ovarian abscess. Broad ligaments were divided, and progress was tedious due to the thick adhesions and distorted landmarks. Eventually, the left bladder flap was developed. We stayed as close as possible to the cervical barrel. The left uterine vessels were desiccated and divided. At this time, we turned attention to the right side. Initially, we intended to save the right ovary. Using blunt and sharp dissection, the tubal abscess was dissected away from the pelvic sidewall. The tissue was very hyperemic and oozed. We desiccated a but the bleeding could not be effectively controlled. At this point, the right ovary was sacrificed to get better control of the bleeding. Right uterine vessels and infundibulopelvic ligament were desiccated and divided. We continued our sharp and blunt dissection down to the round ligament. The broad ligament leaves were then desiccated and divided. Once the uterine vessels were reached, they were likewise desiccated and divided. Using blunt and sharp dissection, the bladder was advanced down the cervix. During the entire procedure, at multiple locations, the operative field was lavaged and suctioned free. This revealed many small bleeders from the hyperemic tissue. These were desiccated w Ligasure in a sequential fashion. We turned to the vaginal phase. The abdomen was desufflated of CO2 gas and the legs placed in the high dorsal lithotomy position. Two Lenka clamps were placed on the cervical barrel and traction applied, and 10 mL 0.25% Marcaine with epinephrine was injected around the barrel in small aliquots to create a liquid tourniquet. The barrel of the cervix then was circumscribed with electrocautery. Using blunt and sharp dissection, the anterior and posterior cul-de-sacs were developed. The posterior cul-de-sac was sharply entered, and a Rory speculum was placed. The anterior cul-de-sac was sharply entered, and a right angle retractor was placed to hold bladder and ureters out of harm's way. The base of the uterosacral ligaments were clamped, transected and transfixed with 0 Vicryl. We worked up the uterosacral and cardinal ligaments in a stepwise fashion. All pedicles were clamped, transected and transfixed with 0 Vicryl. Finally, the uterus was free and slipped through the colpotomy wound. Due to the amount of adhesions and ragged peritoneum, there was nothing to reperitonealize on the pelvic floor. We inserted a T-tube drain. Next, the vaginal cuff was reefed with an interlocking stitch of 0 chromic. There was no bleeding observed. The corners of the cuff were then plicated to the uterosacral ligament pedicles. The vagina then was plugged with a glove to create a seal. The abdomen was reinsufflated with CO2 gas, and all operative sites were inspected. Reference photographs. The surgical sites were hemostatically secure. Approximately 500 mL of sterile saline was left in the abdomen. At this point, the 12 mm right lower quadrant port was closed with the Chato-Daphne device using 0 Vicryl. All trocar sleeves were pulled under direct visualization. There was no back bleeding. The abdomen was completely drained of CO2. Ferreira was discontinued and a 70-degree video cystoscope was inserted. The bladder was systematically inspected. There was found to be no incursions. Both right and left ureters had free flow of clear urine. At this point, the Ferreira was replaced into the bladder. The vagina was packed with Kerlix saturated with Premarin. All sponge, needle and instrument counts were confirmed as correct. The patient was uneventfully awakened from general anesthesia and sent to the recovery room in good condition. The patient will continue on IV antibiotics, ampicillin and gentamicin. The patient and were appraised of intraoperative events. TD: 01/04/2018 02:18 JULIANNA
[2018-01-04] MEDS ORDERED: ONDANSETRON 4 MG/2 ML VIAL ONE ×2 (03:52→03:56)
[2018-01-04] MEDS: ONDANSETRON 4 MG/2 ML VIAL IVP PRN ×3 (03:54→16:11)
[2018-01-04] MEDS ORDERED: PROMETHAZINE INJ 25 MG in SODIUM CHLORIDE 0.9% 50 ML IV PRN ×2 (05:38→12:56)
[2018-01-04] MEDS ORDERED: PROMETHAZINE 25 MG/1 ML VIAL ONE (05:39)
[2018-01-04 05:40] LABS: BASOPHILS % (AUTO) 0.1 %; HGB - HEMOGLOBIN 10.1 g/dL (12.0-16.0); LYMPHOCYTES # (AUTO) 0.5 10^3/uL (1.5-3.5); MEAN CORPUSCULAR HGB CONC 32.9 g/dL (32.0-36.0); MONOCYTES # (AUTO) 0.8 10^3/uL (0.0-1.0); MONOCYTES % (AUTO) 7.2 %; NEUTROPHILS % (AUTO) 88.7 %; PLT - PLATELET COUNT 174 10^3/uL (130-450); RED BLOOD COUNT 3.49 10^6/uL (4.20-5.40); RED CELL DISTRIBUTION WIDTH 15.2 % (12.0-15.0); WHITE BLOOD COUNT 11.3 x10^3/uL (4.8-10.8)
[2018-01-04] MEDS ORDERED: PROMETHAZINE 25 MG/1 ML VIAL IM STA ×2 (05:42→05:47)
[2018-01-04] MEDS: SODIUM CHLORIDE FLUSH 0.9% 10 ML SYRINGE ONE ×2 (05:53→05:54)
[2018-01-04] MEDS: SIMETHICONE CHEW 80 MG TABLET PO SCH ×3 (05:54→21:00)
[2018-01-04 05:56] LABS: ALBUMIN 3.3 g/dL (3.2-5.5); ALBUMIN/GLOBULIN RATIO 1.3 (1.0-2.2); ALKALINE PHOSPHATASE 42 IU/L (42-121); ALT ALANINE AMINOTRANSFERASE < 10 IU/L (10-60); AST ASPARTATE AMINOTRANSFERASE 10 IU/L (10-42); BILIRUBIN,TOTAL 0.4 mg/dL (0.2-1.0); BUN - BLOOD UREA NITROGEN < 5 mg/dL (6-20); CALCIUM 8.7 mg/dL (8.5-10.3); CARBON DIOXIDE - CO2 23 mmol/L (21-32); CHLORIDE 103 mmol/L (101-111); CREATININE 0.6 mg/dL (0.4-1.0); GFR - MDRD 107 (>89); GLUCOSE 139 mg/dL (70-100); SODIUM 133 mmol/L (135-145); TOTAL PROTEIN 5.8 g/dL (6.7-8.2)
[2018-01-04] MEDS: METOCLOPRAMIDE 10 MG TABLET PO SCH ×4 (06:47→22:46)
[2018-01-04] MEDS: KETOROLAC 30 MG/ML VIAL IVP SCH ×4 (06:50→23:54)
--- NOTE | 2018-01-04 09:08 | PROVIDER PROGRESS NOTE ---
Subjective - General Admit Date: 01/03/18 Procedure Date: 01/03/18 Post Op Days: 1 Procedure Performed: LAVH, BSO, placement of pelvic drain, lysis of extensive and dense adhesion - Review of Systems Wound/Incisions: positive: Dressing dry and intact Drain Type: Ferreira functional, pelvic floor drain functional Drain Output Description: Pelvic drain serosanguineous fluid, Ferreira clear urine General: positive: Fatigue, Malaise HEENT: positive: No symptoms, Headaches (Mild headache) Pulmonary: positive: No symptoms Cardiovascular: positive: No symptoms Gastrointestinal: positive: Nausea, Abdominal pain (Abdominal pain appropriate for pathology and procedure), Flatus Genitourinary: positive: Other (Pressure from vaginal packing) Musculoskeletal: positive: No symptoms Skin: positive: No symptoms Psychiatric: positive: No symptoms Objective - Patient Data Vital Signs: Vital Signs x48h Temp Pulse Resp BP Pulse Ox 01/04/18 08:07 98.2 F 72 16 130/83 H 99 01/04/18 05:21 87 16 122/70 97 01/04/18 02:04 98.4 F 74 14 126/65 100 01/04/18 01:08 78 16 108/65 97 Weight: Weight 01/02/18 01/03/18 01/04/18 23:59 23:59 23:59 Weight (kg) 81.647 kg Intake & Output: Intake and Output Totals x24h 01/02/18 01/03/18 01/04/18 23:59 23:59 23:59 Intake Total 100 323.5 Output Total 950 Balance 100 -626.5 - Lab Results Lab Results: 01/04/18 05:15 01/04/18 05:15 Other Lab Results: Lab Results x24hrs 01/04/18 01/04/18 Range/Units 05:15 05:15 WBC 11.3 H (4.8-10.8) x10^3/uL RBC 3.49 L (4.20-5.40) 10^6/uL Hgb 10.1 L (12.0-16.0) g/dL Hct 30.7 L (37.0-47.0) % MCV 88.0 (81.0-99.0) fL MCH 29.0 (27.0-31.0) pg MCHC 32.9 (32.0-36.0) g/dL RDW 15.2 H (12.0-15.0) % Plt Count 174 (130-450) 10^3/uL MPV 10.0 (7.9-10.8) fL Neut # 10.0 H (1.5-6.6) 10^3/uL Lymph # 0.5 L (1.5-3.5) 10^3/uL [place] # 0.8 (0.0-1.0) 10^3/uL Eos # 0.0 (0.0-0.7) 10^3/uL Baso # 0.0 (0.0-0.1) 10^3/uL Absolute Nucleated RBC 0.00 x10^3/uL Nucleated RBC % 0.0 /100WBC Sodium 133 L (135-145) mmol/L Potassium 3.3 L (3.5-5.0) mmol/L Chloride 103 (101-111) mmol/L Carbon Dioxide 23 (21-32) mmol/L Anion Gap 7.0 (6-13) BUN < 5 L (6-20) mg/dL Creatinine 0.6 (0.4-1.0) mg/dL Estimated GFR (MDRD) 107 (>89) Glucose 139 H (70-100) mg/dL Calcium 8.7 (8.5-10.3) mg/dL Total Bilirubin 0.4 (0.2-1.0) mg/dL AST 10 (10-42) IU/L ALT < 10 L (10-60) IU/L Alkaline Phosphatase 42 (42-121) IU/L Total Protein 5.8 L (6.7-8.2) g/dL Albumin 3.3 (3.2-5.5) g/dL Globulin 2.5 (2.1-4.2) g/dL Albumin/Globulin Ratio 1.3 (1.0-2.2) - Current Medications Current Medications: Current Medications Generic Name Dose Route Start Last Admin Trade Name Freq PRN Reason Stop Dose Admin Lactated Ringer's 1,000 mls @ 100 mls/hr 01/03/18 23:00 01/04/18 00:02 Lr IV 100 mls/hr .Q10H PARRISH Administration Gentamicin Sulfate 140 mg/ 103.5 mls @ 100 mls/hr 01/04/18 00:00 01/04/18 03: 05 Sodium Chloride IV Infused Q12H PARRISH Infusion Ketorolac Tromethamine 30 mg 01/04/18 07:00 01/04/18 06:50 Toradol Inj IVP 01/09/18 06:59 30 mg Q6H PARRISH Administration Levothyroxine Sodium 125 mcg 01/03/18 23:45 01/04/18 00:49 Synthroid PO Not Given QDAC PARRISH Metoclopramide HCl 10 mg 01/04/18 07:00 01/04/18 06:47 Reglan PO Not Given ACHS [facility] Ondansetron HCl 8 mg 01/04/18 03:51 01/04/18 03:54 Zofran Inj IVP 8 mg Q4HR PRN Administration Nausea / Vomiting Oxycodone HCl 5 mg 01/03/18 22:49 01/04/18 02:16 Roxicodone PO 5 mg Q4HR PRN Administration PAIN Ranitidine HCl 150 mg 01/03/18 23:45 01/04/18 00:49 Zantac PO Not Given DAILY [facility] Scopolamine HBr 1 patch 01/03/18 23:00 01/03/18 23:59 Transderm-Scop TOP 01/06/18 23:01 1 patch Q72H PARRISH Administration Simethicone 80 mg 01/04/18 06:00 01/04/18 05:54 Mylicon PO 80 mg TID PARRISH Administration Physical Exam - Physical Exam General: positive: No acute distress, Alert HEENT: positive: Moist mucous membranes Neck: positive: Supple w/out meningeal sx Cardiac: positive: Regular Rate (No significant murmur) Resipratory: positive: Clear to ausultation eunice Abdomen: positive: Normal Bowel sounds, Tender to palpation (Appropriate tenderness) Female : positive: Normal external, Other (Vaginal T-tube present) Extremities: positive: Normal ROM, No pedal edema, Non tender Skin: positive: Warm and dry Neurologic: positive: Alert and Oriented X 3, Normal Sensation, Normal Speech PSYCH: positive: Anxious (Mild anxiety) Assessment/Plan - Assessment/Plan Assessment: Patient underwent an extensive laparoscopic surgery to treat ruptured tubal abscesses that resulted in 400 cc blood loss. Thus far the patient is well compensated however she is not ambulated showered or done any daily activities. Patient seems alert and strong enough to begin ambulation and toileting. Plan: PLAN * Discontinue Ferreira catheter this morning * Hep-Lock IV port * Continue pelvic drain via vaginal tube * Continue ampicillin and gentamicin, may discontinue tonight if patient remains afebrile * Encourage ambulation and shower * Recheck CBC and CMP in the morning. * If patient does not tolerate ambulation, consider transfusion of 2 units packed red blood cells
[2018-01-04] MEDS: DOCUSATE SODIUM 100 MG CAPSULE PO SCH ×2 (09:13→21:00)
[2018-01-04] MEDS: AMPICILLIN/SULBACTAM 3 GM in SODIUM CHLORIDE 0.9% MINIBAG 100 ML IV SCH ×3 (09:15→20:08)
--- NOTE | 2018-01-04 09:30 | Ultrasound Report ---
PELVIC ULTRASOUND: 01/03/2018 CLINICAL INDICATION: Pelvic pain. COMPARISON: CT 12/31/2017. TECHNIQUE: Transabdominal pelvic ultrasound performed for global evaluation. Transvaginal pelvic ultrasound performed for detailed evaluation. Real-time scanning performed and static images obtained. FINDINGS: The uterus is anteverted, measuring 10.8 x 6.4 x 5.2 cm. The endometrial echo complex measures 11 mm. No focal myometrial lesion is seen. Bilateral complex tubal fluid collections are seen, similar to CT, with the right measuring 4.7 x 3.4 x 2.7 cm and the left measuring 4.7 x 1.9 x 1.9 cm. No free fluid is identified. IMPRESSION: NO SIGNIFICANT INTERVAL CHANGE IN BILATERAL FLUID FILLED FALLOPIAN TUBES. NO FREE FLUID. TD: 01/04/2018 09:29
[2018-01-04] MEDS ORDERED: SODIUM CHLORIDE FLUSH 0.9% 10 ML SYRINGE ONE ×7 (10:35→23:54)
[2018-01-04] MEDS ORDERED: PANTOPRAZOLE 40 MG TABLET PO SCH (11:00)
[2018-01-04] MEDS: GENTAMICIN 370 MG in SODIUM CHLORIDE 0.9% 100ML 100 ML IV SCH (12:21)
[2018-01-04] MEDS ORDERED: HYDROmorphone 1 MG/ML CARPUJECT IVP PRN (12:54)
[2018-01-04] MEDS ORDERED: PROMETHAZINE 25 MG/1 ML VIAL IM PRN (13:58)
[2018-01-04] MEDS: ACETAMINOPHEN 1,000 MG/100 ML 100 ML IV SCH ×2 (14:15→18:51)
[2018-01-04] MEDS ORDERED: MAGNESIUM HYDROXIDE 2,400 MG/30 ML UDC PO PRN (18:49)
--- NOTE | 2018-01-04 19:00 | PROVIDER PROGRESS NOTE ---
Subjective - Prog Note Date Prog Note Date: 01/04/18 Prog Note Time: 18:52 - Subjective Pt reports feeling: No change Subjective: Patient in bed, at bedside. Still continues to have nausea and vomiting. Patient has a history of gastroparesis and normally takes reglan. Notes IM phenergan no help. Ferreira out and patient has ambulated and urinated. Vaginal drain with bloody serous liquid. No pain but nausea and vomiting most annoying. Willing Objective - Vital Signs/Intake & Output Reviewed Vital Signs: Yes Vital Signs: Vital Signs x48h Temp Pulse Resp BP BP Pulse Ox 01/04/18 15:40 98.4 F 74 16 135/70 H 100 01/04/18 13:23 98.4 F 77 16 120/57 L 96 Intake & Output: Intake & Output 01/01/18 01/02/18 01/03/18 01/04/18 23:59 23:59 23:59 23:59 Intake Total 100 1517.083 Output Total 1695 Balance 100 -177.917 - Objective General Appearance: positive: No acute distress Eyes Bilateral: positive: Normal inspection Neurologic/Psychiatric: positive: Oriented x3 - Lab Results Fish Bones: 01/04/18 05:15 01/04/18 05:15 Other Labs: Lab Results x24hrs 01/04/18 01/04/18 Range/Units 05:15 05:15 WBC 11.3 H (4.8-10.8) x10^3/uL RBC 3.49 L (4.20-5.40) 10^6/uL Hgb 10.1 L (12.0-16.0) g/dL Hct 30.7 L (37.0-47.0) % MCV 88.0 (81.0-99.0) fL MCH 29.0 (27.0-31.0) pg MCHC 32.9 (32.0-36.0) g/dL RDW 15.2 H (12.0-15.0) % Plt Count 174 (130-450) 10^3/uL MPV 10.0 (7.9-10.8) fL Neut # 10.0 H (1.5-6.6) 10^3/uL Lymph # 0.5 L (1.5-3.5) 10^3/uL [place] # 0.8 (0.0-1.0) 10^3/uL Eos # 0.0 (0.0-0.7) 10^3/uL Baso # 0.0 (0.0-0.1) 10^3/uL Absolute Nucleated RBC 0.00 x10^3/uL Nucleated RBC % 0.0 /100WBC Sodium 133 L (135-145) mmol/L Potassium 3.3 L (3.5-5.0) mmol/L Chloride 103 (101-111) mmol/L Carbon Dioxide 23 (21-32) mmol/L Anion Gap 7.0 (6-13) BUN < 5 L (6-20) mg/dL Creatinine 0.6 (0.4-1.0) mg/dL Estimated GFR (MDRD) 107 (>89) Glucose 139 H (70-100) mg/dL Calcium 8.7 (8.5-10.3) mg/dL Total Bilirubin 0.4 (0.2-1.0) mg/dL AST 10 (10-42) IU/L ALT < 10 L (10-60) IU/L Alkaline Phosphatase 42 (42-121) IU/L Total Protein 5.8 L (6.7-8.2) g/dL Albumin 3.3 (3.2-5.5) g/dL Globulin 2.5 (2.1-4.2) g/dL Albumin/Globulin Ratio 1.3 (1.0-2.2) Assessment/Plan - Problem List (1) TOA (tubo-ovarian abscess) Impression: 47 yo female, S/p LAVH for ruptured TOA Pain controlled but not nausea and vomiting H/O gastroparesis Continue IV Abx, LR, IV toradol, IV Ofiramev Stop IM phenergan and start routine IV reglan. PRN IV zofran Abdominal binder PRN MOM PRN
[2018-01-04] MEDS: PANTOPRAZOLE 40 MG VIAL IVP SCH (20:08)
[2018-01-04] MEDS: METOCLOPRAMIDE 10 MG/2 ML VIAL IVP SCH ×2 (20:08→23:54)
[2018-01-05] MEDS: ACETAMINOPHEN 1,000 MG/100 ML 100 ML IV SCH ×2 (00:01→06:09)
[2018-01-05 00:51] LABS: GENTAMICIN,RANDOM 0.3 ug/mL
[2018-01-05] MEDS: AMPICILLIN/SULBACTAM 3 GM in SODIUM CHLORIDE 0.9% MINIBAG 100 ML IV SCH ×2 (01:08→09:30)
[2018-01-05] MEDS: LACTATED RINGERS 1,000 ML IV SCH (05:57)
[2018-01-05] MEDS ORDERED: SODIUM CHLORIDE FLUSH 0.9% 10 ML SYRINGE ONE (05:57)
[2018-01-05 05:58] LABS: BASOPHILS % (AUTO) 0.3 %; EOSINOPHILS % (AUTO) 0.3 %; HGB - HEMOGLOBIN 9.5 g/dL (12.0-16.0); LYMPHOCYTES # (AUTO) 1.1 10^3/uL (1.5-3.5); LYMPHOCYTES % (AUTO) 12.1 %; MEAN CORPUSCULAR HEMOGLOBIN 28.9 pg (27.0-31.0); MEAN CORPUSCULAR HGB CONC 32.8 g/dL (32.0-36.0); MEAN CORPUSCULAR VOLUME 88.1 fL (81.0-99.0); MEAN PLATELET VOLUME 10.4 fL (7.9-10.8); MONOCYTES # (AUTO) 0.7 10^3/uL (0.0-1.0); MONOCYTES % (AUTO) 8.2 %; NEUTROPHILS # (AUTO) 6.9 10^3/uL (1.5-6.6); NEUTROPHILS % (AUTO) 79.1 %; PLT - PLATELET COUNT 176 10^3/uL (130-450); RED BLOOD COUNT 3.29 10^6/uL (4.20-5.40); RED CELL DISTRIBUTION WIDTH 15.4 % (12.0-15.0); WHITE BLOOD COUNT 8.7 x10^3/uL (4.8-10.8)
[2018-01-05] MEDS: METOCLOPRAMIDE 10 MG/2 ML VIAL IVP SCH ×2 (06:01→11:45)
[2018-01-05] MEDS: KETOROLAC 30 MG/ML VIAL IVP SCH (06:01)
[2018-01-05] MEDS: SODIUM CHLORIDE FLUSH 0.9% 10 ML SYRINGE ONE (06:07)
[2018-01-05] MEDS: PANTOPRAZOLE 40 MG VIAL IVP SCH (06:07)
[2018-01-05] MEDS: LEVOTHYROXINE 125 MCG TABLET PO SCH (06:08)
[2018-01-05] MEDS: SIMETHICONE CHEW 80 MG TABLET PO SCH ×2 (06:08→14:36)
[2018-01-05] MEDS: METOCLOPRAMIDE 10 MG TABLET PO SCH ×2 (06:15→11:27)
[2018-01-05] MEDS ORDERED: PANTOPRAZOLE 40 MG VIAL IVP SCH (07:00)
[2018-01-05] MEDS: DOCUSATE SODIUM 100 MG CAPSULE PO SCH (09:31)
--- NOTE | 2018-01-05 11:42 | PROVIDER PROGRESS NOTE ---
Subjective - Prog Note Date Prog Note Date: 01/05/18 Prog Note Time: 11:40 - Subjective Pt reports feeling: Improved Subjective: Patient sitting in bed. Cole at bedside. Feeling much better today. Pain and nausea and vomiting under control. Still on IV meds. Has ambulated, urinated and defecated. Vaginal packing and drain removed this AM. Scant vaginal discharge. Objective - Vital Signs/Intake & Output Reviewed Vital Signs: Yes Vital Signs: Vital Signs x48h Temp Pulse Resp BP Pulse Ox 01/05/18 07:38 98.8 F 84 20 134/78 H 97 01/05/18 04:10 98.4 F 81 18 131/83 H 97 Intake & Output: Intake & Output 01/02/18 01/03/18 01/04/18 01/05/18 23:59 23:59 23:59 23:59 Intake Total 100 3367.083 2720.0 Output Total 1700 5 Balance 100 5741.327 2160.0 - Objective General Appearance: positive: No acute distress Eyes Bilateral: positive: Normal inspection Abdomen: positive: Non-tender, No distention, Other (Incision sites (3) intact with dermabond on top. No erythema nor edema.) Neurologic/Psychiatric: positive: Oriented x3 - Lab Results Fish Bones: 01/05/18 05:23 01/04/18 05:15 Other Labs: Lab Results x24hrs 01/05/18 01/05/18 Range/Units 05:23 00:20 WBC 8.7 (4.8-10.8) x10^3/uL RBC 3.29 L (4.20-5.40) 10^6/uL Hgb 9.5 L (12.0-16.0) g/dL Hct 29.0 L (37.0-47.0) % MCV 88.1 (81.0-99.0) fL MCH 28.9 (27.0-31.0) pg MCHC 32.8 (32.0-36.0) g/dL RDW 15.4 H (12.0-15.0) % Plt Count 176 (130-450) 10^3/uL MPV 10.4 (7.9-10.8) fL Neut # 6.9 H (1.5-6.6) 10^3/uL Lymph # 1.1 L (1.5-3.5) 10^3/uL [place] # 0.7 (0.0-1.0) 10^3/uL Eos # 0.0 (0.0-0.7) 10^3/uL Baso # 0.0 (0.0-0.1) 10^3/uL Absolute Nucleated RBC 0.00 x10^3/uL Nucleated RBC % 0.0 /100WBC Last Dose Date 01-04-18 Last Dose Time 1221 Random Gentamicin 0.3 ug/mL Assessment/Plan - Problem List (1) TOA (tubo-ovarian abscess) Impression: 47 yo S/p 01/03/2018 LAVH, BSO, MEME, cystoscopy for ruptured TOA Clinically improving. WBC now WNL today, continues to be afebrile. Controlled pain and nausea/vomiting with IV meds Hypokalemia Will convert medications to orals. If patient tolerates po meds, discharge to home this PM. Try po dilaudid since po oxycodone caused vomiting. Dk ramsey. Depot estrogen to inhibit surgical menopause symptoms until the patient has recovered more.
[2018-01-05] MEDS ORDERED: HYDROmorphone 2 MG TABLET PO PRN (11:48)
[2018-01-05] MEDS ORDERED: METOCLOPRAMIDE 10 MG TABLET PO SCH (12:00)
[2018-01-05] MEDS ORDERED: ACETAMINOPHEN 500 MG TABLET PO SCH (12:00)
[2018-01-05] MEDS ORDERED: ESTRADIOL CYPIONATE IM ONE (12:30)
[2018-01-05] MEDS: GENTAMICIN 370 MG in SODIUM CHLORIDE 0.9% 100ML 100 ML IV SCH (12:43)
[2018-01-05] MEDS: POTASSIUM CHLOR 10 MEQ/100 ML 10 MEQ/100 ML BAG IV SCH ×2 (14:56→15:28)
--- NOTE | 2018-01-05 15:19 | PROVIDER PROGRESS NOTE ---
Subjective - Prog Note Date Prog Note Date: 01/05/18 Prog Note Time: 15:12 - Subjective Pt reports feeling: Improved Subjective: Patient laying in bed. Deric at bedside. Patient has tolerated po Tylenol and dilaudid. Had another BM. Would like to go home. Objective - Vital Signs/Intake & Output Reviewed Vital Signs: Yes Vital Signs: Vital Signs x48h Temp Pulse Resp BP Pulse Ox 01/05/18 12:11 99.3 F 83 18 141/81 H 99 01/05/18 07:38 98.8 F 84 20 134/78 H 97 Intake & Output: Intake & Output 01/02/18 01/03/18 01/04/18 01/05/18 23:59 23:59 23:59 23:59 Intake Total 100 3367.083 3069.25 Output Total 1700 5 Balance 100 7842.117 3097.25 - Objective General Appearance: positive: No acute distress Eyes Bilateral: positive: Normal inspection Neurologic/Psychiatric: positive: Oriented x3, Mood/affect nml - Lab Results Fish Bones: 01/05/18 05:23 01/04/18 05:15 Other Labs: Lab Results x24hrs 01/05/18 01/05/18 Range/Units 05:23 00:20 WBC 8.7 (4.8-10.8) x10^3/uL RBC 3.29 L (4.20-5.40) 10^6/uL Hgb 9.5 L (12.0-16.0) g/dL Hct 29.0 L (37.0-47.0) % MCV 88.1 (81.0-99.0) fL MCH 28.9 (27.0-31.0) pg MCHC 32.8 (32.0-36.0) g/dL RDW 15.4 H (12.0-15.0) % Plt Count 176 (130-450) 10^3/uL MPV 10.4 (7.9-10.8) fL Neut # 6.9 H (1.5-6.6) 10^3/uL Lymph # 1.1 L (1.5-3.5) 10^3/uL [place] # 0.7 (0.0-1.0) 10^3/uL Eos # 0.0 (0.0-0.7) 10^3/uL Baso # 0.0 (0.0-0.1) 10^3/uL Absolute Nucleated RBC 0.00 x10^3/uL Nucleated RBC % 0.0 /100WBC Last Dose Date 01-04-18 Last Dose Time 1221 Random Gentamicin 0.3 ug/mL Assessment/Plan - Problem List (1) TOA (tubo-ovarian abscess) Impression: 41 yo S/p 01/03/2018 LAVH, BSO, cystoscopy for ruptured TOA. S/p 01/05/2018 depot estradiol IM x 1; will last for 3-4 weeks. Tolerating po meds with satisfactory control of nausea/vomiting and pain. Urinating and defecting without issue. S/p >24 hours of antibiotics, >24 hours afebrile, normal WBC today. Improving hypokalemia. Will discharge to home after K-rider completed and last dose of antibiotics. Rx for colace, Zofran, Tylenol, diflucan and doxycycline faxed to [facility] in [place]. Hand written Rx for dilaudid. Patient to see Dr. Garrison for follow up this coming week and the week after. Dr. Garrison to discuss with the patient if ERT should be continued. Patient to complete 2 weeks of doxycycline for completion of treatment of TOA. Call if worsening fevers, chills, abdominal pain or vaginal bleeding. Discharge summary dictated: [id number] Discharge Plan Disposition: 01 Home, Self Care Condition: Good Diet: Regular Activity Restrictions: Activity as Tolerated (No lifting >10 lbs) Shower Restrictions: No Driving Restrictions: Yes (No driving) Weight Bearing: Full Weight No Smoking: If you smoke, Please STOP! Call for help. Follow-up with: Soheila Roe ARNP [Primary Care Provider] -
[2018-01-05 17:26] VITALS: BP 141/80
--- NOTE | 2018-01-05 22:58 | DISCHARGE SUMMARY ---
Physician: Ernestina Gee DO DATE OF ADMISSION: 01/03/2018 DATE OF DISCHARGE: 01/05/2018 DIAGNOSES ON ADMISSION 1. A 47-year-old G3, P-3-0-0-3. 2. Tubo-ovarian abscesses. DIAGNOSES AT DISCHARGE 1. A 47-year-old G3, P-3-0-0-3. 2. Status post 01/03/2018 laparoscopic-assisted vaginal hysterectomy, bilateral salpingo-oophorectomy, cystoscopy, lysis of adhesions. 3. Status post Depo-Estradiol 5 mg IM x1 on 01/05/2018 for climacteric symptoms. 4. Improving hypokalemia. BRIEF HISTORY: This is a patient of [facility] who was noted to have worsening pelvic pain, nausea, vomiting, night sweats, and a low-grade fever. She is also noted to be anorexic. Patient was seen in the emergency department on 12/30/[address] showed a potential hydrosalpinx and elevated white count of 16,000. Unfortunately, patient's symptoms had gotten worse and she presented to the emergency department on 01/03/2018. Patient was seen by Dr. Garrison who recommended patient to have surgery in order to further diagnose and treat her. Patient was in agreement and signed consent. Patient underwent a laparoscopic-assisted vaginal hysterectomy, bilateral salpingo-oophorectomy, cystoscopy and lysis of adhesions. There were ruptured bilateral tubal abscesses with exudate in the abdomen. Extensive adhesions were also noted. There were no complications. Patient did receive a T-tube placed to the vagina to drain the pelvic cavity. Patient's postoperative course was complicated by nausea and vomiting. Patient does have history of gastroparesis. [id number] IV Reglan, IV Ofirmev, IV Tylenol and Dilaudid were found to satisfactorily control patient's nausea, vomiting and pain. Patient was then converted to the oral equivalents, with the exception of Toradol. Patient, at this point in time, has received more than 24 hours of IV antibiotics and is feeling much better. Patient did have a bump in her white count up to 14,000, but now this has resolved on postop day number 2. Patient is ambulating and tolerating a regular diet. She has been afebrile through her entire hospital course, and she is urinating and defecating without issue. Patient's vaginal packing and T-tube have been removed and is draining minimal amount of discharge. Patient did receive one dose of Depo-Estradiol on 01/05/2018 so that she may recover better without having to deal with climacteric symptoms secondary to her surgical menopause. Discussion in the future will need to be had in order to see if patient should continue with estrogen replacement in the future. Patient will be discharged to home today with continuation of antibiotics for her tubo-ovarian abscesses, specifically for doxycycline 100 mg 1 tab p.o. b.i.d. for the next 2 weeks. Prescriptions also for Colace, Zofran, Tylenol and Diflucan have been faxed to [facility] in [place]. A handwritten prescription for Dilaudid has been given to patient since I cannot fax narcotics. Patient is to follow up with Dr. Garrison next week and then the week after. Patient and her , Deric, understand that should patient have any worsening fevers, chills, abdominal pain or vaginal bleeding, they are to contact us immediately for followup. TD: 01/05/2018 22:57 MTDD
== END 2018-01-05 17:37 | disposition home or self-care (01) | DRG 743 ==
LOC: ED 13:59 → SDS 18:00 → MS2 22:49
PROVIDERS: ADMIT Obstetrics & Gynecology; ATTEND Obstetrics & Gynecology
PROC: 0DNW4ZZ Release Peritoneum, Percutaneous Endoscopic Approach (ICD-10-PCS; 2018-01-03)
PROC: 0TJB8ZZ Inspection of Bladder, Via Natural or Artificial Opening Endoscopic (ICD-10-PCS; 2018-01-03)
PROC: 0UT9FZZ Resection of Uterus, Via Natural or Artificial Opening With Percutaneous Endoscopic Assistance (ICD-10-PCS; principal; 2018-01-03 18:00)
PROC: 0UT2FZZ Resection of Bilateral Ovaries, Via Natural or Artificial Opening With Percutaneous Endoscopic Assistance (ICD-10-PCS; 2018-01-03 18:00)
PROC: 0UT7FZZ Resection of Bilateral Fallopian Tubes, Via Natural or Artificial Opening With Percutaneous Endoscopic Assistance (ICD-10-PCS; 2018-01-03 18:00)
DX: N70.03 Acute salpingitis and oophoritis (principal); N73.9 Female pelvic inflammatory disease, unspecified; N99.4 Postprocedural pelvic peritoneal adhesions; N73.6 Female pelvic peritoneal adhesions (postinfective); R11.2 Nausea with vomiting, unspecified; E87.6 Hypokalemia; K31.84 Gastroparesis; E05.00 Thyrotoxicosis with diffuse goiter without thyrotoxic crisis or storm; F17.200 Nicotine dependence, unspecified, uncomplicated; Z79.899 Other long term (current) drug therapy
CPT/HCPCS: 36415; 76830; 76856; 80053; 80170; 81001; 81003; 81025; 83690; 85025; 86850; 86900; 86901; 87070; 87086; 87205; 87210; 87491; 87591; 88307; 93005; 96361; 96365; 96375; 99283; 99284

== ENCOUNTER 2018-01-16 10:03 | Outpatient (CLI) | payer OTHER ==
--- NOTE | 2018-01-16 14:19 | Mammography Report ---
DIGITAL DIAGNOSTIC RIGHT MAMMOGRAM: 12/16/2017 CLINICAL INDICATION: Possible architectural distortion on screening. TECHNIQUE: Right true lateral, repeat CC, spot compression views. COMPARISON: 12/26/2017, 07/24/2011. FINDINGS: The right breast again demonstrates scattered fibroglandular densities. The regions of possible architectural distortion dissipate evenly on additional compression. No underlying mass lesion is identified. IMPRESSION: NEGATIVE EXAMINATION. RECOMMENDATION: Routine annual screening unless otherwise clinically indicated. BIRADS CATEGORY 1 - NEGATIVE. STANDARD QUALIFYING STATEMENTS 1. This examination was reviewed with the aid of Computed Aided Detection (CAD). 2. A negative x-ray report should not delay biopsy if a dominant or clinically suspicious mass is present. More than 5% of cancers are not identified by x-ray. 3. Dense breasts may obscure an underlying neoplasm. TD: 01/16/2018 14:19 JULIANNA
== END 2018-01-16 10:04 | disposition home or self-care (01) ==
LOC: DI 10:03
PROVIDERS: ATTEND Nurse Practitioner Obstetrics & Gynecology
DX: R92.2 Inconclusive mammogram (principal)

== ENCOUNTER 2018-06-06 12:53 | Outpatient (CLI) | payer OTHER | END 2018-06-06 12:54 | disposition home or self-care (01) | LOC: NS 12:53 | PROVIDERS: ATTEND Family Medicine | DX: Z71.3 Dietary counseling and surveillance (principal); K31.89 Other diseases of stomach and duodenum; Z68.32 Body mass index [BMI] 32.0-32.9, adult | CPT/HCPCS: 97802 ==

== ENCOUNTER 2018-08-26 14:49 | Outpatient (CLI) | payer OTHER ==
[2018-08-26 15:40] LABS: BILIRUBIN,URINE NEGATIVE (NEGATIVE); GLUCOSE, URINE (UA) NEGATIVE (NEGATIVE); KETONES,URINE (UA) NEGATIVE (NEGATIVE); LEUKOCYTE ESTERASE, URINE NEGATIVE (NEGATIVE); NITRITE,URINE NEGATIVE (NEGATIVE); OCCULT BLOOD,URINE NEGATIVE (NEGATIVE); PH,URINE 5.5 PH (5.0-7.5); PROTEIN,URINE NEGATIVE (NEGATIVE); UROBILINOGEN,URINE 0.2 (NORMAL) E.U./dL (NORMAL)
[2018-08-26 16:41] LABS: CLARITY,URINE TURBID (CLEAR)
[2018-08-26 16:46] LABS: AMORPHOUS SEDIMENT,UR Marked /LPF; BACTERIA,URINE None Seen /HPF (None Seen); RBC,URINE 0-5 /HPF (0-5); SQUAMOUS EPITHELIAL CELL,UR RARE Squamous (<= Few)
== END 2018-08-26 14:50 | disposition home or self-care (01) ==
LOC: LAB 14:49
PROVIDERS: ATTEND Obstetrics & Gynecology
DX: R39.15 Urgency of urination (principal)
CPT/HCPCS: 81001; 81003; 87086

== ENCOUNTER 2018-11-20 08:00 | Outpatient (CLI) | payer OTHER ==
[2018-11-20 17:57] LABS: BASOPHILS % (AUTO) 0.7 %; EOSINOPHILS % (AUTO) 0.9 %; HGB - HEMOGLOBIN 13.7 g/dL (12.0-16.0); LYMPHOCYTES # (AUTO) 1.5 10^3/uL (1.5-3.5); LYMPHOCYTES % (AUTO) 25.9 %; MEAN CORPUSCULAR HEMOGLOBIN 28.3 pg (27.0-31.0); MEAN CORPUSCULAR HGB CONC 32.2 g/dL (32.0-36.0); MEAN PLATELET VOLUME 11.1 fL (7.9-10.8); MONOCYTES # (AUTO) 0.4 10^3/uL (0.0-1.0); MONOCYTES % (AUTO) 7.5 %; NEUTROPHILS # (AUTO) 3.7 10^3/uL (1.5-6.6); PLT - PLATELET COUNT 144 10^3/uL (130-450); RED BLOOD COUNT 4.84 10^6/uL (4.20-5.40); WHITE BLOOD COUNT 5.7 x10^3/uL (4.8-10.8)
[2018-11-20 18:08] LABS: HB2 TOTAL 14.7 g/dL; HEMOGLOBIN A1C 0.54 g/dL; HEMOGLOBIN A1C % 5.5 % (4.6-6.2)
[2018-11-20 18:12] LABS: PLATELET ESTIMATE, MANUAL NORMAL (130-450,000) (NORMAL); PLATELET MORPHOLOGY RARE GIANT PLATELETS (NORMAL); RBC MORPHOLOGY (MULTIPLE) 1+ ANISOCYTOSIS (NORMAL)
[2018-11-20 18:16] LABS: ALBUMIN 4.4 g/dL (3.2-5.5); ALBUMIN/GLOBULIN RATIO 1.4 (1.0-2.2); BILIRUBIN,TOTAL 0.6 mg/dL (0.2-1.0); CREATININE 0.5 mg/dL (0.4-1.0); TOTAL PROTEIN 7.6 g/dL (6.7-8.2)
[2018-11-20 18:18] LABS: THYROID STIMULATING HORMONE 0.39 uIU/mL (0.34-5.60)
== END 2018-11-20 23:59 | disposition home or self-care (01) ==
LOC: LAB.F 08:00
PROVIDERS: ATTEND Nurse Practitioner Family
DX: R42 Dizziness and giddiness (principal); G62.9 Polyneuropathy, unspecified
CPT/HCPCS: 36415; 80053; 82607; 83036; 83540; 84443; 84466; 85025

== ENCOUNTER 2019-07-18 16:00 | Outpatient (CLI) | payer OTHER | END 2019-07-18 23:59 | disposition home or self-care (01) | LOC: LAB.R 16:00 | PROVIDERS: ATTEND Nurse Practitioner | DX: L03.90 Cellulitis, unspecified (principal) | CPT/HCPCS: 87070; 87205 ==

== ENCOUNTER 2019-09-04 11:04 | Outpatient (CLI) | payer OTHER | END 2019-09-04 11:05 | disposition home or self-care (01) | LOC: LAB.S 11:04 | PROVIDERS: ATTEND Internal Medicine | DX: E03.9 Hypothyroidism, unspecified (principal) | CPT/HCPCS: 36415; 84443 ==

== ENCOUNTER 2019-09-12 15:02 | Outpatient (CLI) | payer OTHER ==
--- NOTE | 2019-09-15 08:51 | Ultrasound Report ---
Reason: HYPOTHYROIDISM Procedure Date: 09/12/2019 Accession Number: [id number] / [id number] Procedure: US - Head or Neck Soft Tissue CPT Code: Final Report FULL RESULT: EXAM: THYROID ULTRASOUND EXAM DATE: 09/12/2019 03:40 PM. CLINICAL HISTORY: Hypothyroidism. COMPARISON: THYROID 11/11/2008 3:16 PM. TECHNIQUE: Real time sonographic imaging of the thyroid was performed by the pastor. Multiple business services representative static images were saved for review. FINDINGS: THYROID GLAND: Right Lobe: 3.3 x 0.8 x 0.7 cm, volume 1 cc. Mildly heterogeneous background echotexture. Right Lobe Nodules: Inferior pole intermediate suspicion solid hypoechoic nodule with smooth margins 0.6 x 0.6 x 1.4 cm; previously measured at 0.7 cm. Mid pole low suspicion avascular hypoechoic area 0.6 x 0.7 x 0.6 cm. Left Lobe: 2.2 x 0.8 x 0.8 cm, volume 0.7 cc. Mildly heterogeneous background echotexture. Left Lobe Nodules: Lower pole low suspicion hypoechoic avascular area 0.6 x 0.7 x 0.8 cm. Isthmus: 0.3 cm AP. Isthmic Nodules: None. LYMPH NODES: No adenopathy demonstrated in the central or lateral compartment. OTHER: None. IMPRESSION: Intermediate suspicion nodule in the lower pole right thyroid lobe, suggest consideration of FNA. Management recommendations are based on 2015 [place] [employer] Management Guidelines for Adult Patients with Thyroid Nodules and Differentiated Thyroid Cancer. RADIA
== END 2019-09-12 15:03 | disposition home or self-care (01) ==
LOC: DI 15:02
PROVIDERS: ATTEND Internal Medicine
DX: E03.9 Hypothyroidism, unspecified (principal)
CPT/HCPCS: 76536

== ENCOUNTER 2019-10-21 10:48 | Emergency (ER) | payer OTHER ==
[2019-10-21 11:19] LABS: BASOPHILS # (AUTO) 0.1 10^3/uL (0.0-0.1); BASOPHILS % (AUTO) 0.7 %; EOSINOPHILS % (AUTO) 0.3 %; HGB - HEMOGLOBIN 15.6 g/dL (12.0-16.0); LYMPHOCYTES # (AUTO) 1.3 10^3/uL (1.5-3.5); MEAN CORPUSCULAR HEMOGLOBIN 31.1 pg (27.0-31.0); MEAN CORPUSCULAR HGB CONC 32.8 g/dL (32.0-36.0); MEAN CORPUSCULAR VOLUME 94.6 fL (81.0-99.0); MEAN PLATELET VOLUME 11.7 fL (7.9-10.8); MONOCYTES # (AUTO) 0.5 10^3/uL (0.0-1.0); NEUTROPHILS # (AUTO) 5.3 10^3/uL (1.5-6.6); NEUTROPHILS % (AUTO) 73.7 %; PLT - PLATELET COUNT 226 10^3/uL (130-450); RED BLOOD COUNT 5.02 10^6/uL (4.20-5.40); RED CELL DISTRIBUTION WIDTH 14.2 % (12.0-15.0); WHITE BLOOD COUNT 7.2 x10^3/uL (4.8-10.8)
[2019-10-21 11:36] LABS: ALBUMIN 5.4 g/dL (3.2-5.5); ALBUMIN/GLOBULIN RATIO 1.7 (1.0-2.2); BILIRUBIN,TOTAL 0.9 mg/dL (0.2-1.0); CALCIUM 9.9 mg/dL (8.5-10.3); CREATININE 0.9 mg/dL (0.4-1.0); TOTAL PROTEIN 8.6 g/dL (6.7-8.2)
[2019-10-21] MEDS ORDERED: SODIUM CHLORIDE 0.9% 1,000 ML IV ONE (11:42)
[2019-10-21] MEDS ORDERED: KETOROLAC 30 MG/ML VIAL IVP STA (11:42)
[2019-10-21] MEDS ORDERED: ONDANSETRON 4 MG/2 ML VIAL IVP STA (11:42)
--- NOTE | 2019-10-21 11:50 | ED Physician Documentation ---
PD HPI ABD PAIN - Stated complaint Stated Complaint: ABD PX/L SIDE PX - Chief complaint Chief Complaint: Abd Pain - History obtained from History obtained from: Patient - History of Present Illness Timing - onset: How many weeks ago (1) Timing - duration: Weeks (1) Timing - details: Gradual onset, Still present Quality: Sharp, Pain Location: LLQ Improved by: Laying still Worsened by: Moving, Position, Palpation Associated symptoms: Nausea. No: Vomiting Similar symptoms before: Has not had sx before Recently seen: Not recently seen - Additional information Additional information: Previously well 49-year-old female is developed some left lower quadrant abdominal pain over the past week. She has some improvement of pain if she is not moving around much. She has had some progression of the pain over the week and she is coming to the emergency department today with concerns about diverticulitis. She has pain worse when she is moving about, when she walks up the stairs, or when she bends. She denies any urinary symptoms. She denies fever but has felt warm and has had chills. She cannot vomit as she has had a fundoplication but she is nauseated and has had some relief with the use of zofran. Review of Systems Constitutional: reports: Fever, Chills, Fatigue Eyes: denies: Decreased vision Ears: denies: Ear pain Nose: denies: Rhinorrhea / runny nose, Congestion Throat: denies: Sore throat Cardiac: denies: Chest pain / pressure, Palpitations Respiratory: denies: Dyspnea, Cough GI: reports: Abdominal Pain, Nausea, Bloody / black stool (bloody mucousy stool X 1 yesterday) : denies: Dysuria, Frequency Skin: denies: Rash Musculoskeletal: denies: Neck pain, Back pain, Extremity pain PD PAST MEDICAL HISTORY - Past Medical History Endocrine/Autoimmune: HyPOthyroidism GI: GERD, Other - Past Surgical History Past 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: section - Present Medications Home Medications: Ambulatory Orders Medication Instructions Recorded Confirmed Levothyroxine [Synthroid] 137 mcg PO QDAC 09/26/15 01/03/18 Metoclopramide [Reglan] 10 mg PO ACHS 01/03/18 01/03/18 Omeprazole 20 mg PO BIDAC 01/03/18 01/03/18 Ciprofloxacin HCl [Cipro] 500 mg PO BID #14 tablet 10/21/19 Metronidazole [Flagyl] 500 mg PO BID #14 tablet 10/21/19 - Allergies Allergies/Adverse Reactions: Allergies Allergy/AdvReac Type Severity Reaction Status Date / Time Penicillins Allergy Rash Verified 10/21/19 10:57 - Social History Does the pt smoke?: Yes Smoking Status: Current every day smoker Does the pt drink ETOH?: Yes Does the pt have substance abuse?: Yes PD ED PE NORMAL - Vitals Vital signs reviewed: Yes (hypertensive ) - General General: Alert and oriented X 3, No acute distress, Well developed/nourished - HEENT HEENT: Atraumatic, PERRL, EOMI - Neck Neck: Supple, no meningeal sign, No bony TTP - Cardiac Cardiac: RRR, No murmur - Respiratory Respiratory: No respiratory distress, Clear bilaterally - Abdomen Abdomen: Soft, Other (LLQ tenderness to palpation without gaurding but with referred rebound tenderness. ) - Back Back: No CVA TTP, No spinal TTP - Derm Derm: Normal color, Warm and dry, No rash - Extremities Extremities: No deformity, No edema - Neuro Neuro: Alert and oriented X 3, administrative court justice 2-12 intact, No motor deficit, No sensory deficit, Normal speech Eye Opening: Spontaneous Motor: Obeys Commands Verbal: Oriented GCS Score: 15 - Psych Psych: Normal mood, Normal affect Results - Vitals Vitals: Vital Signs - 24 hr 10/21/19 10/21/19 10/21/19 10:54 11:54 14:48 Temperature 35.8 C L 36.5 C Heart Rate 87 70 75 Respiratory 14 18 16 Rate Blood Pressure 126/95 H 120/79 132/89 H O2 Saturation 99 99 98 Oxygen O2 Source Room air - Labs Labs: Laboratory Tests 10/21/19 10/21/19 10/21/19 11:10 11:10 11:50 WBC 7.2 RBC 5.02 Hgb 15.6 Hct 47.5 H MCV 94.6 MCH 31.1 H MCHC 32.8 RDW 14.2 Plt Count 226 MPV 11.7 H Neut # (Auto) 5.3 Lymph # (Auto) 1.3 L [place] # (Auto) 0.5 Eos # (Auto) 0.0 Baso # (Auto) 0.1 Absolute Nucleated RBC 0.00 Nucleated RBC % 0.0 Sodium 136 Potassium 4.5 Chloride 101 Carbon Dioxide 22 Anion Gap 13.0 BUN 18 Creatinine 0.9 Estimated GFR (MDRD) 67 L Glucose 117 H Calcium 9.9 Total Bilirubin 0.9 AST 26 ALT 24 Alkaline Phosphatase 56 Total Protein 8.6 H Albumin 5.4 Globulin 3.2 Albumin/Globulin Ratio 1.7 Lipase 103 H Urine Color YELLOW Urine Clarity CLEAR Urine pH 5.5 Ur Specific [place] >=1.030 H Urine Protein NEGATIVE Urine Glucose (UA) NEGATIVE Urine Ketones NEGATIVE Urine Occult Blood NEGATIVE Urine Nitrite NEGATIVE Urine Bilirubin NEGATIVE Urine Urobilinogen 0.2 (NORMAL) Ur Leukocyte Esterase NEGATIVE Ur Microscopic Review NOT INDICATED Urine Culture Comments NOT INDICATED - Rads (name of study) CT ab/pel w Radiology: Prelim report reviewed (Impression: No diverticulitis. Hepatosplenomegaly. Somewhat nonspecific single prominent segment of small bowel in the left lower quadrant with questionable mild fecal is . No interloop fluid, differential enhancement or significant dilation of the bowel to suggest high-grade obstruction.), EMP read indepedently, See rad report PD MEDICAL DECISION MAKING - ED course Complexity details: reviewed old records, reviewed results, re-evaluated patient, considered differential, d/w patient, d/w family, d/w education sales consultant (Dr. Caruso suggest treating as diverticulitis ) ED course: 49-year-old female has developed some left lower quadrant abdominal pain that has progressed over the past week. She has an unusual finding on her CT of her abdomen showing fecalization of a loop of small bowel without obstruction and the surgeon is consulted in the case recommends treatment treatment as if it is diverticulitis. There is no obstruction noted at this time and the patient is cautioned to be wary of signs of obstruction to include increasing pain loss of flatulence and bowel movement. She is return to the emergency department if th is occurs. Departure - Departure Disposition: 01 Home, Self Care Clinical Impression: Diverticulitis small intestine w/o perforation or abscess w/bleeding Condition: Stable Instructions: ED Diverticulitis Follow-Up: Mario Alberto Jerry MD [Primary Care Provider] - Cecy Caruso MD [Provider Admit Priv/Credential] - Prescriptions: Ciprofloxacin HCl [Cipro] 500 mg PO BID #14 tablet Metronidazole [Flagyl] 500 mg PO BID #14 tablet Comments: Today we have found some fecalization of the small intestine consistent with the possibility of small bowel diverticulitis. The treatment of this includes taking antibiotics and encouraging the fecal stream to move. The complication of this can be small bowel obstruction and this is manifest by increasing pain bloating and absence of gas or feces. If this occurs this is a reason to return to the emergency department for further evaluation at any time of the day or night. Discharge Date/Time: 10/21/19 14:50
[2019-10-21] MEDS ORDERED: IOVERSOL 320 100 ML VIAL IVP ONE ×2 (12:09→14:08)
[2019-10-21 12:13] LABS: BILIRUBIN,URINE NEGATIVE (NEGATIVE); GLUCOSE, URINE (UA) NEGATIVE (NEGATIVE); KETONES,URINE (UA) NEGATIVE (NEGATIVE); LEUKOCYTE ESTERASE, URINE NEGATIVE (NEGATIVE); NITRITE,URINE NEGATIVE (NEGATIVE); OCCULT BLOOD,URINE NEGATIVE (NEGATIVE); PH,URINE 5.5 PH (5.0-7.5); PROTEIN,URINE NEGATIVE (NEGATIVE); UROBILINOGEN,URINE 0.2 (NORMAL) E.U./dL (NORMAL)
[2019-10-21 12:19] LABS: CLARITY,URINE CLEAR (CLEAR)
--- NOTE | 2019-10-21 13:08 | CT Report ---
Reason: LLQ abdominal pain, diverticulitis suspected Procedure Date: 10/21/2019 Accession Number: [id number] / [id number] Procedure: CT - Abdomen/Pelvis W CPT Code: Final Report FULL RESULT: EXAM: CT ABDOMEN AND PELVIS EXAM DATE: 10/21/2019 12:51 PM. CLINICAL HISTORY: Left lower quadrant abdominal pain, diverticulitis suspected. COMPARISONS: ABDOMEN/PELVIS W/ 12/31/2017 2:38 PM. TECHNIQUE: Routine helical CT imaging was performed through the abdomen and pelvis. IV contrast: OPTI 320 100ML. Enteric contrast: No. Reconstructions: Coronal and sagittal. In accordance with CT protocol optimization, one or more of the following dose reduction techniques were utilized for this exam: automated exposure control, adjustment of mA and/or KV based on patient size, or use of iterative reconstructive technique. A contrast extravasation event occurred during initial scan attempt. A new IV was placed and the study was successfully completed with intravenous contrast administration. The patient was examined by the radiologist and demonstrated no significant local tenderness and no signs or symptoms of compartment syndrome. FINDINGS: Lung Bases: Unremarkable. Liver: Enlarged similar to prior. Gallbladder/Bile Ducts: Unremarkable. Spleen: Mild splenomegaly, up to 13.5 cm as seen coronally. Pancreas: Normal. Adrenal Glands: Normal. Kidneys: Normal. No masses or hydronephrosis. Peritoneal Cavity/Bowel: There is a prominent loop of small bowel in the left lower quadrant with caliber of up to 2.8 cm which demonstrates mild partial fecalization. Proximal and distal small bowel is essentially decompressed. There is no interloop fluid, free air or differential enhancement of bowel wall to suggest high-grade obstruction. There is no significant diverticulosis and no diverticulitis. The appendix is well visualized and normal. Pelvic Organs: The bladder is within normal limits. Interval hysterectomy. Vasculature: No aneurysms or other significant abnormality. Bones: No significant abnormality. Other: None. IMPRESSION: No diverticulitis. Hepatosplenomegaly. Somewhat nonspecific single prominent segment of small bowel in the left lower quadrant with questionable mild fecalization. No interloop fluid, differential enhancement or significant dilation of the bowel to suggest high-grade obstruction. RADIA
[2019-10-21 14:48] VITALS: BP 132/89
== END 2019-10-21 14:50 | disposition home or self-care (01) ==
LOC: ED 10:48
DX: K57.12 Diverticulitis of small intestine without perforation or abscess without bleeding (principal); R16.2 Hepatomegaly with splenomegaly, not elsewhere classified; F17.200 Nicotine dependence, unspecified, uncomplicated
CPT/HCPCS: 36415; 74177; 80053; 81003; 83690; 85025; 96361; 96374; 99284; Q9967; 81001; 87086

== ENCOUNTER 2019-10-24 11:42 | Outpatient (CLI) | payer OTHER ==
[2019-10-24] MEDS ORDERED: BUFFERED LIDOCAINE 10 ML SYRINGE ONE (13:08)
[2019-10-24] MEDS ORDERED: BUFFERED LIDOCAINE 10 ML SYRINGE IU ONE (13:16)
--- NOTE | 2019-10-24 15:32 | Ultrasound Report ---
Reason: THYROID NODULE RT Procedure Date: 10/24/2019 Accession Number: [id number] / [id number] Procedure: US - FNA Bx w/US Gnd les CPT Code: 13808 Final Report FULL RESULT: EXAM: Thyroid Fine Needle Aspiration EXAM DATE: 10/24/2019 12:14 PM. CLINICAL HISTORY: Right thyroid nodule. COMPARISON: HEAD OR NECK SOFT TISSUE 09/12/2019. TECHNIQUE: The risks, benefits, and alternatives of the procedure were discussed with the patient. All questions were answered. Written and verbal consent were obtained. A site was marked over the inferior pole of the right thyroid gland in question under live sonographic evaluation, then subsequently prepped and draped in a sterile manner. Local anesthesia was performed with 1% lidocaine. A total of four 22 gauge fine-needle aspirates/passes were performed through the nodule in question, then passed to the landfill attendant for preparation. Estimated blood loss was 0 mL. Sonographic images demonstrate needle placement within the nodule in question. FINDINGS IMPRESSION: FNA of nodule adjacent to the inferior pole of the right thyroid gland. RADIA
== END 2019-10-24 11:43 | disposition home or self-care (01) ==
LOC: DI 11:42
PROVIDERS: ATTEND Internal Medicine
DX: E04.1 Nontoxic single thyroid nodule (principal)
CPT/HCPCS: 10005

== ENCOUNTER 2020-10-29 10:50 | Outpatient (CLI) | payer OTHER ==
--- NOTE | 2020-11-01 16:42 | Mammography Report ---
BILATERAL DIGITAL DIAGNOSTIC MAMMOGRAM 3D/2D: 10/29/2020 CLINICAL: Diffuse left breast pain. Comparison is made to exams dated: 01/16/2018 mammogram, 12/26/2017 mammogram, and 07/24/2011 mammogram - [facility]. There are scattered fibroglandular elements in both breasts. No significant masses, calcifications, or other findings are seen in either breast. No significant si ze discrepancy of the left breast is appreciated. Technologist does not note increased size of the left breast or erythema. IMPRESSION: NEGATIVE There is no mammographic evidence of malignancy. No significant interval change of the left breast. Exam findings were conveyed to the patient. Patient is advised to monitor for significant change. Cli nical follow-up as needed. A 1 year screening mammogram is recommended. This exam was interpreted at Station ID: [id number]. NOTE: For mammograms, a report in lay terms will be sent to the patient. Approximately 15% of breast malignancies will not be visualized mammographically. In the management of a palpable breast mass, a negative mammogram must not discourage biopsy of a clinically suspicious lesion. Electronically Signed By: Antoine Travis M.D. slc/:10/29/2020 14:04:18 ACR BI-RADS Category 1: Negative 3341F PARENCHYMAL PATTERN: (A) - The breast(s) demonstrate(s) scattered fibroglandular densities. BI-RADS CATEGORY: (1) - 1 RECOMMENDATION: (ANNUAL) - Recommend routine annual screening mammography. [id number] 1 year screening LATERALITY: (B)
== END 2020-10-29 10:51 | disposition home or self-care (01) ==
LOC: DI 10:50
PROVIDERS: ATTEND Physician Assistant
DX: Q83.9 Congenital malformation of breast, unspecified (principal); N64.4 Mastodynia

== ENCOUNTER 2020-11-19 09:06 | Outpatient (CLI) | payer OTHER ==
[2020-11-19 09:27] LABS: BASOPHILS % (AUTO) 0.4 %; EOSINOPHILS % (AUTO) 0.8 %; HCT - HEMATOCRIT 43.5 % (37.0-47.0); HGB - HEMOGLOBIN 14.1 g/dL (12.0-16.0); LYMPHOCYTES # (AUTO) 1.2 10^3/uL (1.5-3.5); LYMPHOCYTES % (AUTO) 21.7 %; MEAN CORPUSCULAR HEMOGLOBIN 33.7 pg (27.0-31.0); MEAN CORPUSCULAR HGB CONC 32.4 g/dL (32.0-36.0); MEAN CORPUSCULAR VOLUME 103.8 fL (81.0-99.0); MEAN PLATELET VOLUME 10.9 fL (7.9-10.8); MONOCYTES # (AUTO) 0.4 10^3/uL (0.0-1.0); MONOCYTES % (AUTO) 7.6 %; NEUTROPHILS # (AUTO) 3.7 10^3/uL (1.5-6.6); NEUTROPHILS % (AUTO) 69.3 %; PLT - PLATELET COUNT 167 10^3/uL (130-450); RED BLOOD COUNT 4.19 10^6/uL (4.20-5.40); RED CELL DISTRIBUTION WIDTH 14.3 % (12.0-15.0); WHITE BLOOD COUNT 5.3 x10^3/uL (4.8-10.8)
[2020-11-19 09:45] LABS: ALBUMIN 4.5 g/dL (3.2-5.5); ALBUMIN/GLOBULIN RATIO 1.6 (1.0-2.2); ALKALINE PHOSPHATASE 54 IU/L (42-121); ALT ALANINE AMINOTRANSFERASE 13 IU/L (10-60); AST ASPARTATE AMINOTRANSFERASE 17 IU/L (10-42); BILIRUBIN,TOTAL 1.1 mg/dL (0.2-1.0); BUN - BLOOD UREA NITROGEN 12 mg/dL (6-20); CARBON DIOXIDE - CO2 23 mmol/L (21-32); CHLORIDE 104 mmol/L (101-111); CHOL/HDL RATIO 3.7 (<4.4); CHOLESTEROL 258 mg/dL; CREATININE 0.9 mg/dL (0.4-1.0); GFR - MDRD 66 (>89); GLUCOSE 135 mg/dL (70-100); HDL CHOLESTEROL 69 mg/dL; LDL CHOLESTEROL,CALCULATED 132 mg/dL; LDL/HDL RATIO 1.9 (<4.4); POTASSIUM 3.6 mmol/L (3.5-5.0); SODIUM 140 mmol/L (135-145); TOTAL PROTEIN 7.3 g/dL (6.7-8.2); TRIGLYCERIDES 286 mg/dL; VLDL CHOLESTEROL 57 mg/dL
[2020-11-19 10:37] LABS: THYROID STIMULATING HORMONE 2.36 uIU/mL (0.34-5.60)
[2020-11-19 10:43] LABS: PROLACTIN 26.95 ng/mL
[2020-11-19 11:04] LABS: FOLLICLE STIMULATING HORMONE 54.28 mIU/mL
[2020-11-19 11:05] LABS: LUTEINIZING HORMONE 29.35 mIU/mL
[2020-11-20 05:03] LABS: ESTRADIOL 23 pg/mL; PROGESTERONE <0.5 ng/mL
== END 2020-11-19 09:07 | disposition home or self-care (01) ==
LOC: LAB 09:06
PROVIDERS: ATTEND Physician Assistant
DX: Z00.00 Encounter for general adult medical examination without abnormal findings (principal); F41.9 Anxiety disorder, unspecified; R10.9 Unspecified abdominal pain; E03.9 Hypothyroidism, unspecified; K62.5 Hemorrhage of anus and rectum; J30.2 Other seasonal allergic rhinitis; F32.9 Major depressive disorder, single episode, unspecified; K58.9 Irritable bowel syndrome, unspecified; Z90.710 Acquired absence of both cervix and uterus
CPT/HCPCS: 36415; 80053; 80061; 82670; 83001; 83002; 83721; 84144; 84146; 84443; 85025

== ENCOUNTER 2020-12-07 08:00 | Outpatient (CLI) | payer OTHER ==
[2020-12-07 11:33] LABS: ESTIMATED AVERAGE GLUCOSE 103 mg/dL (70-100); HEMOGLOBIN A1c% 5.2 % (4.27-6.07)
== END 2020-12-07 23:59 | disposition home or self-care (01) ==
LOC: LAB 08:00
PROVIDERS: ATTEND Obstetrics & Gynecology
DX: R73.09 Other abnormal glucose (principal)
CPT/HCPCS: 36415; 83036

== ENCOUNTER 2021-10-22 08:00 | Outpatient (CLI) | payer OTHER | END 2021-10-22 23:59 | LOC: LAB.N 08:00 | PROVIDERS: ATTEND Family Medicine | DX: U07.1 COVID-19 (principal) ==

== ENCOUNTER 2021-11-04 12:58 | Outpatient (CLI) | payer OTHER ==
[2021-11-04 15:46] LABS: BASOPHILS # (AUTO) 0.1 10^3/uL (0.0-0.1); BASOPHILS % (AUTO) 0.6 %; EOSINOPHILS % (AUTO) 0.3 %; HCT - HEMATOCRIT 46.2 % (37.0-47.0); HGB - HEMOGLOBIN 15.4 g/dL (12.0-16.0); LYMPHOCYTES # (AUTO) 1.7 10^3/uL (1.5-3.5); LYMPHOCYTES % (AUTO) 19.6 %; MEAN CORPUSCULAR HEMOGLOBIN 32.8 pg (27.0-31.0); MEAN CORPUSCULAR HGB CONC 33.3 g/dL (32.0-36.0); MEAN CORPUSCULAR VOLUME 98.3 fL (81.0-99.0); MEAN PLATELET VOLUME 11.7 fL (7.9-10.8); MONOCYTES # (AUTO) 0.7 10^3/uL (0.0-1.0); MONOCYTES % (AUTO) 8.3 %; NEUTROPHILS # (AUTO) 6.3 10^3/uL (1.5-6.6); PLT - PLATELET COUNT 301 10^3/uL (130-450); RED CELL DISTRIBUTION WIDTH 12.5 % (12.0-15.0); WHITE BLOOD COUNT 8.8 x10^3/uL (4.8-10.8)
[2021-11-04 16:36] LABS: ALBUMIN 4.9 g/dL (3.2-5.5); ALBUMIN/GLOBULIN RATIO 1.5 (1.0-2.2); ALKALINE PHOSPHATASE 61 IU/L (42-121); ALT ALANINE AMINOTRANSFERASE 21 IU/L (10-60); AST ASPARTATE AMINOTRANSFERASE 20 IU/L (10-42); BILIRUBIN,TOTAL 1.1 mg/dL (0.2-1.0); BUN - BLOOD UREA NITROGEN 11 mg/dL (6-20); CALCIUM 10.2 mg/dL (8.5-10.3); CARBON DIOXIDE - CO2 23 mmol/L (21-32); CHLORIDE 101 mmol/L (101-111); CHOL/HDL RATIO 3.9 (<4.4); CHOLESTEROL 245 mg/dL; CREATININE 0.8 mg/dL (0.4-1.0); GFR - MDRD 76 (>89); GLUCOSE 115 mg/dL (70-100); HDL CHOLESTEROL 63 mg/dL; LDL CHOLESTEROL,CALCULATED 121 mg/dL; LDL/HDL RATIO 1.9 (<4.4); POTASSIUM 3.9 mmol/L (3.5-5.0); SODIUM 136 mmol/L (135-145); TOTAL PROTEIN 8.2 g/dL (6.7-8.2); TRIGLYCERIDES 307 mg/dL; VLDL CHOLESTEROL 61 mg/dL
[2021-11-04 17:31] LABS: T4 (THYROXINE) 6.65 ug/dL (6.09-12.23)
[2021-11-04 17:35] LABS: THYROID STIMULATING HORMONE 1.35 uIU/mL (0.34-5.60)
== END 2021-11-04 12:59 | disposition home or self-care (01) ==
LOC: LAB.S 12:58
PROVIDERS: ATTEND Registered Nurse
DX: E03.9 Hypothyroidism, unspecified (principal); Z79.899 Other long term (current) drug therapy
CPT/HCPCS: 36415; 80053; 80061; 83721; 84436; 84443; 84480; 85025

== ENCOUNTER 2021-11-10 16:19 | Outpatient (CLI) | payer OTHER ==
--- NOTE | 2021-11-10 17:52 | Ultrasound Report ---
PROCEDURE: Head or Neck Soft Tissue INDICATIONS: HX OF THYROID NODULE, HYPOTHYROIDISM TECHNIQUE: Real-time scanning was performed of the thyroid gland, with image documentation. COMPARISON: 09/12/2019 FINDINGS: Right: Thyroid lobe measures 3.5 x 0.7 x 0.5 cm. Left: Thyroid lobe measures 2.1 x 0.8 x 0.7 cm. Isthmus: 3 mm thick. Nodule number: 1 Location: Right inferior thyroid, potentially representing a parathyroid gland Size: 1.3 x 0.8 x 0.6 cm, prior 1.4 x 0.6 x 0.6 cm. Composition: Solid Echogenicity: Hypoechoic Shape: wider than tall. Margins: Smooth Echogenic foci: None. Total points: 4 ACR TI-RADS category: 4 Nodule number: 2 Location: Right mid thyroid Size: 0.6 x 0.6 x 0.5 cm, prior 0.6 x 0.7 x 0.6 cm. Composition: Solid Echogenicity: Hypoechoic Shape: wider than tall. Margins: Smooth Echogenic foci: None. Total points: 4 ACR TI-RADS category: 4 Nodule number: 3 Location: Left inferior thyroid Size: 0.6 x 0.6 x 0.4 cm, 0.8 x 0.6 x 0.7 cm. Composition: Solid Echogenicity: Isoechoic Shape: wider than tall. Margins: Smooth Echogenic foci: None Total points: 3 ACR TI-RADS category: 3 IMPRESSION: Bilateral thyroid nodules are seen, which are no significant change compared to the prio r ultrasound. The nodule at the right inferior thyroid may potentially represent a parathyroid gland. It was previo usly biopsied. Please correlate with biopsy results. By published criteria, annual follow-up is recommended. ACR TI-RADS definitions and recommendations: TI-RADS 1 (benign): 0 points. FNA not needed. TI-RADS 2 (not suspicious): 2 points. FNA not needed. TI-RADS 3 (mildly suspicious): 3 points. "FNA if 2.5 cm or larger, follow up if 1.5 cm or larger (at 1, 3, and 5 years). TI-RADS 4 (moderately suspicious): 4-6 points. "FNA if 1.5 cm or larger, follow up if 1 cm or larger (at 1, 2, 3, and 5 years). TI-RADS 5 (highly suspicious): 7 points or more. "FNA if 1 cm or larger, follow up if 0.5 cm or larger (every year for 5 years). Reviewed by: Cholo Tucker MD on 11/10/2021 4:51 PM [facility] Approved by: Cholo Tucker MD on 11/10/2021 4:51 PM [facility] Station ID: [id number]
== END 2021-11-10 16:20 | disposition home or self-care (01) ==
LOC: DI 16:19
PROVIDERS: ATTEND Registered Nurse
DX: E04.2 Nontoxic multinodular goiter (principal); E03.9 Hypothyroidism, unspecified

== ENCOUNTER 2022-01-18 11:52 | Outpatient (CLI) | payer OTHER ==
[2022-01-18] MEDS ORDERED: IOVERSOL 320 50 ML VIAL ONE (12:06)
--- NOTE | 2022-01-18 15:03 | CT Report ---
PROCEDURE: Abdomen/Pelvis W INDICATIONS: PARTIAL INTESTINAL OBSTRUCTION CONTRAST: IV CONTRAST: Optiray 320 ml: 100 PO CONTRAST: Optiray 320 ml50 TECHNIQUE: After the administration of oral and intravenous contrast, 5 mm thick sections acquired from the diap hragms to the symphysis. 5 mm thick coronal and sagittal reformats were acquired. For radiation dos e reduction, the following was used: automated exposure control, adjustment of mA and/or kV accordin g to patient size. COMPARISON: CT abdomen and pelvis 10/21/2019. FINDINGS: Image quality: Excellent. ABDOMEN: Lung bases: Lung bases are clear. Heart size is normal. Small hiatal hernia. Solid organs: Liver is prominent in size. No focal lesion. Gallbladder is unremarkable. Biliary sys tem is non dilated. Pancreas enhances normally. Mildly enlarged measuring 13.3 cm. No adrenal nodule s. Kidneys demonstrate normal size and enhancement, without hydronephrosis. Peritoneum and bowel: Bowel loops demonstrate normal wall thickness and caliber. Normal appendix. N o free fluid or air. Nodes and vessels: No retroperitoneal or mesenteric adenopathy by size criteria. Aorta and inferior vena cava are normal in size. Miscellaneous: Tiny umbilical hernia. PELVIS: Genitourinary: Bladder wall thickness is normal. Uterus is absent. Miscellaneous: No inguinal hernias or adenopathy. Bones: No suspicious bony lesions. No vertebral body compression fractures. IMPRESSION: 1. No bowel obstruction demonstrated. No free fluid. 2. Small hiatal hernia. 3. Prominent liver and spleen. Reviewed by: Antoine Travis MD on 01/18/2022 3:02 PM PDT Approved by: Antoine Travis MD on 01/18/2022 3:02 PM PDT Station ID: [id number]
[2022-01-18] MEDS ORDERED: IOVERSOL 320 50 ML VIAL IVP ONE (21:16)
== END 2022-01-18 11:53 | disposition home or self-care (01) ==
LOC: DI 11:52
PROVIDERS: ATTEND Surgery
DX: K56.600 Partial intestinal obstruction, unspecified as to cause (principal); K44.9 Diaphragmatic hernia without obstruction or gangrene; R16.2 Hepatomegaly with splenomegaly, not elsewhere classified

== ENCOUNTER 2022-02-02 07:56 | Day surgery (SDC) | payer OTHER ==
[2022-02-02] MEDS ORDERED: LACTATED RINGERS 1,000 ML IV ONE (08:20)
--- NOTE | 2022-02-02 09:07 | ANESTHESIA ---
Pre-Anesthesia VS, & Labs - Diagnosis change in bowel habits - Procedure colonoscopy Vital Signs: Temp Pulse Resp BP Pulse Ox 36.5 C 77 12 125/80 96 02/02/22 08:05 02/02/22 08:05 02/02/22 08:05 02/02/22 08:05 02/02/22 08:05 Height: 5 ft 1 in Weight (kg): 89 kg Body Mass Index: 37.0 BMI Classification: Obese - NPO >8 hours - Is Patient ?: No Home Medications and Allergies Levothyroxine [Synthroid] 137 mcg PO QDAC 09/26/15 Allergies/Adverse Reactions: Allergies Allergy/AdvReac Type Severity Reaction Status Date / Time Penicillins Allergy Rash Verified 10/21/19 10:57 Anes History & Medical History - Anesthetic History Anesthesia Complications: reports: No previous complications Family history of Anesthesia Complications: Denies Family history of Malignant Hyperthermia: Denies - Medical History Cardiovascular: reports: None Pulmonary: reports: None Gastrointestinal: reports: Diverticulitis, Other Urinary: reports: None Neuro: reports: Migraines Musculoskeletal: reports: None Endocrine/Autoimmune: reports: HyPOthyroidism Blood Disorders: reports: Anemia Skin: reports: None Smoking Status: Current every day smoker - Surgical History General: reports: Hiatal hernia repair, Colonoscopy, EGD Gynecologic: reports: section, Hysterectomy Exam General: Alert, Oriented x3, Cooperative Dental: WNL Mouth Openin Fingerbreadth Neck Mobility: Normal Mallampati classification: II Thyromental Distance: 4-6 cm Respiratory: Lungs clear Cardiovascular: Regular rate Plan Anesthesia Type: General, Total IV Consent for Procedure(s) Verified and Reviewed: Yes Code Status: Attempt Resuscitation ASA classification: 2-Mild systemic disease Is this case an emergency?: No
[2022-02-02] MEDS ORDERED: PROPOFOL 500 MG/50 ML 500 MG/50 ML VIAL ONE (09:14)
[2022-02-02] MEDS ORDERED: LACTATED RINGERS 500 ML IV ONE (09:46)
[2022-02-02 10:27] VITALS: BP 110/70
--- NOTE | 2022-02-02 12:55 | ANESTHESIA POST OP EVALUATION ---
Anesthesia Post Eval - Post Anesthesia Eval Vitals: Last Vital Signs Temp 37 C 02/02/22 10:26 Pulse 80 02/02/22 10:26 Resp 16 02/02/22 10:26 BP 110/70 02/02/22 10:26 Pulse Ox 98 02/02/22 10:26 CV Function Including HR & BP: Stable Pain Control: Satisfactory Nausea & Vomiting: Negative Mental Status: Baseline Respiratory Status: Airway Patent Hydration Status: Satisfactory Anesthesia Complications: None
== END 2022-02-02 07:57 | disposition home or self-care (01) ==
LOC: SDS 07:56
PROVIDERS: ATTEND Surgery
PROC: 0DBM8ZX Excision of Descending Colon, Via Natural or Artificial Opening Endoscopic, Diagnostic (ICD-10-PCS; 2022-02-02)
PROC: 0DBK8ZX Excision of Ascending Colon, Via Natural or Artificial Opening Endoscopic, Diagnostic (ICD-10-PCS; principal; 2022-02-02 09:15)
DX: R19.4 Change in bowel habit (principal); R14.0 Abdominal distension (gaseous); E66.9 Obesity, unspecified; F41.8 Other specified anxiety disorders; Z72.89 Other problems related to lifestyle; Z86.010 Personal history of colon polyps; F17.200 Nicotine dependence, unspecified, uncomplicated; Z68.37 Body mass index [BMI] 37.0-37.9, adult
CPT/HCPCS: 45380; 83630; 87045; 87046; 87427; 87493; J7120

== ENCOUNTER 2022-08-06 11:24 | Emergency (ER) | payer OTHER ==
[2022-08-06 12:02] VITALS: BP 148/91
--- OUTSIDE RECORDS SUMMARY | 2022-08-06 12:18 | EXTERNAL MEDICAL SUMMARY RPT | Continuity of Care Document ---
:1970 Author Organization [facility] Address [address] [place] [address] Phone Care Team Providers Name Role Phone Kourtney Jaron Skyson Unavailable Unavailable Allergies No information. Encounters No information. Functional Status No information. Immunizations No information. Medications date description facility [id number] rizatriptan [facility] Jayesh [phone]+0000 topiramate [facility]esh [phone]+0000 rizatriptan [facility] [phone]+0000 topiramate [facility]esh [phone]+0000 cyclobenzaprine [facility] [phone]+0000 rizatriptan [facility]esh [phone]+0000 cyclobenzaprine [facility] [phone]+0000 rizatriptan [facility]esh [phone]+0000 topiramate [facility]esh [phone]+0000 topiramate [facility]esh [phone]+0000 cyclobenzaprine [facility]esh [phone]+0000 cyclobenzaprine [facility] Problems No information. Procedures No information. Results/Labs No information. Social History No information. Vital Signs No information.
--- NOTE | 2022-08-06 13:35 | ED Physician Documentation ---
PD HPI URI - Stated complaint Stated Complaint: R EAR PX - Chief complaint Chief Complaint: Heent - History obtained from History obtained from: Patient - Additional information Additional information: Patient presenting for evaluation of right ear pain for 2 days. She recently has had a URI with cough and congestion A week ago. She has been trying Mucinex with some improvement in her symptoms.She did take a home COVID test which was negative. She denies difficulty breathing or chest pain. Her concern right now is that her ear has been bothering her for the last 2 days and she is starting to feel like her left ear is also irritated. 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: None : None HEENT: None Psych: Claustrophobia Musculoskeletal: None Derm: None - Past Surgical History Past Surgical History: Yes General: Hiatal hernia repair, Colonoscopy, EGD /PATIENT REGISTRATION REPRESENTATIVE: section, Hysterectomy - Present Medications Home Medications: Ambulatory Orders Medication Instructions Recorded Confirmed Levothyroxine [Synthroid] 137 mcg PO QDAC 09/26/15 01/03/18 Cefdinir 300 mg PO BID #20 cap 08/06/22 - Allergies Allergies/Adverse Reactions: Allergies Allergy/AdvReac Type Severity Reaction Status Date / Time Penicillins Allergy Rash Verified 10/21/19 10:57 - Social History Does the pt smoke?: Yes Smoking Status: Current every day smoker Does the pt drink ETOH?: Yes Does the pt have substance abuse?: Yes - Immunizations Immunizations are current?: Yes - POLST Patient has POLST: No PD ED PE NORMAL - General General: Alert and oriented X 3, No acute distress, Well developed/nourished - HEENT HEENT: Atraumatic. No: Ears normal (R TM: Erythematous, bulging; Left TM with fluid) - Neck Neck: Supple, no meningeal sign - Cardiac Cardiac: RRR, Strong equal pulses - Respiratory Respiratory: No respiratory distress, Clear bilaterally - Abdomen Abdomen: Soft, Non tender - Derm Derm: Warm and dry - Extremities Extremities: No edema - Neuro Neuro: Normal speech Results - Vitals Vitals: Vital Signs - 24 hr 08/06/22 12:00 Temperature 37.3 C Heart Rate 90 Respiratory 17 Rate Blood Pressure 148/91 H O2 Saturation 100 Oxygen O2 Source Room air PD MEDICAL DECISION MAKING - ED course ED course: Pt found to have R OM. Nontoxic and well appearing. Given duration of symptoms, will start on antibiotics. Pt advised on concerning symptoms to return for. Departure - Departure Disposition: 01 Home, Self Care Clinical Impression: Right otitis media Condition: Stable Instructions: ED Otitis Media Acute Adult Prescriptions: Cefdinir 300 mg PO BID #20 cap Comments: You were found to have an ear infection to the right ear. I started you on an antibiotic that is not in the penicillin category as you have an allergy. I sent this prescription to [facility] in [place]. If you have any worsening symptoms please consider return to the ER. Discharge Date/Time: 08/06/22 13:43
== END 2022-08-06 13:43 | disposition home or self-care (01) ==
LOC: ED 11:24
DX: H66.91 Otitis media, unspecified, right ear (principal); F17.200 Nicotine dependence, unspecified, uncomplicated
CPT/HCPCS: 99282; 99284

== ENCOUNTER 2022-10-31 12:12 | Outpatient (CLI) | payer OTHER ==
--- NOTE | 2022-10-31 20:53 | Ultrasound Report ---
PROCEDURE: Head or Neck Soft Tissue INDICATIONS: HIST OF THYROID NODULE TECHNIQUE: Real-time scanning was performed of the thyroid gland, with image documentation. COMPARISON: Thyroid ultrasound 11/10/2021 FINDINGS: Right: Thyroid lobe measures 2.3 x 0.8 x 0.7 cm, and is heterogeneous in echotexture. Left: Thyroid lobe measures 2.1 x 0.7 x 0.8 cm, and is heterogeneous in echotexture. Isthmus: 2 mm thick. Nodule number: One Location: Right lobe inferior Size: 1.4 x 0.7 x 0.8 cm. Previously 1.3 x 0.8 x 0.6 cm no significant change Composition: solid Echogenicity: hypoechoic Shape: wider than tall. Margins: smooth Echogenic foci: none Total points: 4 ACR TI-RADS category: 4 Nodule number: Two Location: Right lobe mid Size: 0.6 x 0.6 x 0.6 cm. Previously 0.6 x 0.6 x 0.5 cm no significant change Composition: Solid Echogenicity: Hypoechoic Shape: wider than tall. Margins: smooth Echogenic foci: None Total points: 4 ACR TI-RADS category: 4 Previously seen 6 mm nodule in the left lobe of the thyroid gland not identified on the current exam. IMPRESSION: 1. Previously seen 6 mm nodule in the left lobe of the thyroid gland not identified on the current ex am. 2. Other thyroid nodules are not significantly changed. Correlation with any prior biopsy results may be helpful. Nodules do not meet TI RADS criteria for FNA recommendation. Follow-up is recommended as below. ACR TI-RADS definitions and recommendations: TI-RADS 1 (benign): 0 points. FNA not needed. TI-RADS 2 (not suspicious): 2 points. FNA not needed. TI-RADS 3 (mildly suspicious): 3 points. "FNA if 2.5 cm or larger, follow up if 1.5 cm or larger (at 1, 3, and 5 years). TI-RADS 4 (moderately suspicious): 4-6 points. "FNA if 1.5 cm or larger, follow up if 1 cm or larger (at 1, 2, 3, and 5 years). TI-RADS 5 (highly suspicious): 7 points or more. "FNA if 1 cm or larger, follow up if 0.5 cm or larger (every year for 5 years). Reviewed by: Gordon Jin MD on 10/31/2022 8:52 PM PST Approved by: Gordon Jin MD on 10/31/2022 8:52 PM PST Station ID: [id number]
== END 2022-10-31 12:13 | disposition home or self-care (01) ==
LOC: DI 12:12
PROVIDERS: ATTEND Registered Nurse
DX: E04.2 Nontoxic multinodular goiter (principal)

== ENCOUNTER 2022-12-07 10:27 | Outpatient (CLI) | payer OTHER ==
[2022-12-07 14:28] LABS: BASOPHILS # (AUTO) 0.1 10^3/uL (0.0-0.1); BASOPHILS % (AUTO) 0.7 %; EOSINOPHILS % (AUTO) 0.4 %; HGB - HEMOGLOBIN 14.6 g/dL (12.0-16.0); LYMPHOCYTES # (AUTO) 1.6 10^3/uL (1.5-3.5); LYMPHOCYTES % (AUTO) 22.6 %; MEAN CORPUSCULAR HEMOGLOBIN 31.7 pg (27.0-31.0); MEAN CORPUSCULAR HGB CONC 31.7 g/dL (32.0-36.0); MONOCYTES # (AUTO) 0.5 10^3/uL (0.0-1.0); MONOCYTES % (AUTO) 7.4 %; NEUTROPHILS # (AUTO) 4.8 10^3/uL (1.5-6.6); NEUTROPHILS % (AUTO) 68.6 %; PLT - PLATELET COUNT 262 10^3/uL (130-450); RED CELL DISTRIBUTION WIDTH 13.5 % (12.0-15.0)
[2022-12-07 14:54] LABS: ALBUMIN 4.2 g/dL (3.2-5.5); ALBUMIN/GLOBULIN RATIO 1.3 (1.0-2.2); ALKALINE PHOSPHATASE 56 IU/L (42-121); ALT ALANINE AMINOTRANSFERASE 17 IU/L (10-60); AST ASPARTATE AMINOTRANSFERASE 19 IU/L (10-42); BUN - BLOOD UREA NITROGEN 13 mg/dL (6-20); CALCIUM 10.1 mg/dL (8.5-10.3); CARBON DIOXIDE - CO2 26 mmol/L (21-32); CHLORIDE 108 mmol/L (101-111); CHOL/HDL RATIO 3.3 (<4.4); CHOLESTEROL 223 mg/dL; CREATININE 0.8 mg/dL (0.4-1.0); GFR - MDRD 75 (>89); GLUCOSE 112 mg/dL (70-100); HDL CHOLESTEROL 68 mg/dL; LDL CHOLESTEROL,CALCULATED 103 mg/dL; LDL/HDL RATIO 1.5 (<4.4); POTASSIUM 4.2 mmol/L (3.5-5.0); SODIUM 140 mmol/L (135-145); TOTAL PROTEIN 7.5 g/dL (6.7-8.2); TRIGLYCERIDES 258 mg/dL; VLDL CHOLESTEROL 52 mg/dL
[2022-12-07 15:41] LABS: THYROID STIMULATING HORMONE 3.48 uIU/mL (0.34-5.60)
== END 2022-12-07 10:28 | disposition home or self-care (01) ==
LOC: LAB.S 10:27
PROVIDERS: ATTEND Registered Nurse
DX: Z79.899 Other long term (current) drug therapy (principal); Z13.220 Encounter for screening for lipoid disorders; Z13.29 Encounter for screening for other suspected endocrine disorder
CPT/HCPCS: 36415; 80053; 80061; 83721; 84443; 85025

== ENCOUNTER 2023-01-20 07:00 | Outpatient (CLI) | payer OTHER ==
--- NOTE | 2023-01-20 18:25 | XRAY Report ---
PROCEDURE: Foot 3 View LT INDICATIONS: LEFT FOOT PAIN TECHNIQUE: 3 views of the foot were acquired. COMPARISON: 03/30/2022 FINDINGS: Bones: No fractures or dislocations. No suspicious bony lesions. An accessory ossicle is seen, an o s trigonum. An os peroneum is also seen. Plantar and Achilles calcaneal spurs are seen. Soft tissues: No suspicious soft tissue calcifications or masses. IMPRESSION: No acute plain film abnormality can be seen. Reviewed by: Cholo Tucker MD on 01/20/2023 5:24 PM [facility]DT Approved by: Cholo Tucker MD on 01/20/2023 5:24 PM [place] Station ID: [id number]
== END 2023-01-20 23:59 | disposition home or self-care (01) ==
LOC: DI.S 07:00
PROVIDERS: ATTEND Registered Nurse
DX: M79.672 Pain in left foot (principal)

== ENCOUNTER 2023-02-05 08:00 | Outpatient (CLI) | payer OTHER ==
--- NOTE | 2023-02-05 15:01 | XRAY Report ---
PROCEDURE: Ankle 3 View LT INDICATIONS: LEFT ANKLE PAIN TECHNIQUE: 3 views of the ankle were acquired. COMPARISON: None. FINDINGS: Bones: No fractures or dislocations. Ankle mortise is normally aligned. No suspicious bony lesions . Soft tissues: No tibiotalar joint effusion. Achilles tendon appears normal. IMPRESSION: No acute bony abnormality. If there remains a high clinical concern for fracture, consider cross-sect ional imaging now. If pain persists, consider repeat x-ray in 10-14 days or cross-sectional imaging. Reviewed by: Herberth West MD on 02/05/2023 3:00 PM PDT Approved by: Herberth West MD on 02/05/2023 3:00 PM PDT Station ID: [id number]
== END 2023-02-05 23:59 | disposition home or self-care (01) ==
LOC: DI.WOS 08:00
PROVIDERS: ATTEND Physician Assistant Surgical
DX: M25.572 Pain in left ankle and joints of left foot (principal); M79.672 Pain in left foot

== ENCOUNTER 2024-02-01 18:34 | Emergency (ER) | payer OTHER ==
[2024-02-01 19:05] LABS: BILIRUBIN,URINE NEGATIVE (NEGATIVE); GLUCOSE, URINE (UA) NEGATIVE (NEGATIVE); KETONES,URINE (UA) NEGATIVE (NEGATIVE); LEUKOCYTE ESTERASE, URINE NEGATIVE (NEGATIVE); NITRITE,URINE NEGATIVE (NEGATIVE); OCCULT BLOOD,URINE NEGATIVE (NEGATIVE); PROTEIN,URINE NEGATIVE (NEGATIVE); UROBILINOGEN,URINE 0.2 (NORMAL) E.U./dL (NORMAL)
[2024-02-01 19:06] LABS: BASOPHILS % (AUTO) 0.3 %; EOSINOPHILS # (AUTO) 0.1 10^3/uL (0.0-0.7); EOSINOPHILS % (AUTO) 0.5 %; HCT - HEMATOCRIT 42.9 % (37.0-47.0); HGB - HEMOGLOBIN 13.8 g/dL (12.0-16.0); LYMPHOCYTES # (AUTO) 2.2 10^3/uL (1.5-3.5); LYMPHOCYTES % (AUTO) 23.1 %; MEAN CORPUSCULAR HEMOGLOBIN 31.2 pg (27.0-31.0); MEAN CORPUSCULAR HGB CONC 32.2 g/dL (32.0-36.0); MEAN CORPUSCULAR VOLUME 96.8 fL (81.0-99.0); MEAN PLATELET VOLUME 11.7 fL (7.9-10.8); MONOCYTES # (AUTO) 0.6 10^3/uL (0.0-1.0); MONOCYTES % (AUTO) 6.6 %; NEUTROPHILS # (AUTO) 6.5 10^3/uL (1.5-6.6); NEUTROPHILS % (AUTO) 69.2 %; PLT - PLATELET COUNT 221 10^3/uL (130-450); RED BLOOD COUNT 4.43 10^6/uL (4.20-5.40); RED CELL DISTRIBUTION WIDTH 13.1 % (12.0-15.0); WHITE BLOOD COUNT 9.4 x10^3/uL (4.8-10.8)
[2024-02-01 19:14] LABS: CLARITY,URINE CLEAR (CLEAR)
[2024-02-01 19:23] LABS: ALBUMIN 4.7 g/dL (3.2-5.5); ALBUMIN/GLOBULIN RATIO 2.2 (1.0-2.2); BILIRUBIN,TOTAL 0.5 mg/dL (0.2-1.0); CALCIUM 10.5 mg/dL (8.5-10.3); CREATININE 1.2 mg/dL (0.6-1.3); POTASSIUM 3.3 mmol/L (3.5-4.5); TOTAL PROTEIN 6.8 g/dL (6.4-8.9)
[2024-02-01] MEDS: KETOROLAC 30 MG/ML VIAL IVP STA (19:33)
[2024-02-01] MEDS: SODIUM CHLORIDE 0.9% 1,000 ML IV ONE (19:33)
[2024-02-01] MEDS ORDERED: iohexoL-300 100 ML VIAL ONE (19:45)
--- NOTE | 2024-02-01 19:51 | ED Physician Documentation ---
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 patient has psh stomach fundoplication, graves disease, anxiety, and migraines. denies urinary sx, fever, cp, soa. 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 : None, Kidney stones HEENT: None Psych: Claustrophobia Musculoskeletal: None Derm: None - Past Surgical History Past Surgical History: Yes General: Hiatal hernia repair, Colonoscopy, EGD /RECREATION TEACHER: section, Hysterectomy - Present Medications Home Medications: Ambulatory Orders Medication Instructions Recorded Confirmed Levothyroxine [Synthroid] 137 mcg PO QDAC 09/26/15 01/03/18 Cefdinir 300 mg PO BID #20 cap 08/06/22 - Allergies Allergies/Adverse Reactions: Allergies Allergy/AdvReac Type Severity Reaction Status Date / Time Penicillins Allergy Rash Verified 02/01/24 18:46 - Social History Does the pt smoke?: Yes Smoking Status: Current every day smoker Does the pt drink ETOH?: Yes Does the pt have substance abuse?: Yes - Immunizations Immunizations are current?: Yes - POLST Patient has POLST: No PD ED PE NORMAL - Vitals Vital signs reviewed: Yes - General General: Alert and oriented X 3, Well developed/nourished, Other (mild to moderate distress prior to meds, retching in bed) - HEENT HEENT: Atraumatic, PERRL, EOMI, Moist mucous membranes, Pharynx benign - Neck Neck: Supple, no meningeal sign - Cardiac Cardiac: RRR - Respiratory Respiratory: No respiratory distress, Clear bilaterally - Abdomen Abdomen: Other (RLQ ttp) - Back Back: Other (R CVA ttp) - Derm Derm: Normal color, Warm and dry - Neuro Neuro: Alert and oriented X 3 Results - Vitals Vitals: Vital Signs - 24 hr 02/01/24 18:38 Temperature 35.9 C L Heart Rate 73 Respiratory 18 Rate O2 Saturation 98 Oxygen O2 Source Room air - Labs Labs: Laboratory Tests 02/01/24 02/01/24 02/01/24 18:55 18:55 18:55 WBC 9.4 RBC 4.43 Hgb 13.8 Hct 42.9 MCV 96.8 MCH 31.2 H MCHC 32.2 RDW 13.1 Plt Count 221 MPV 11.7 H Neut # (Auto) 6.5 Lymph # (Auto) 2.2 [place] # (Auto) 0.6 Eos # (Auto) 0.1 Baso # (Auto) 0.0 Absolute Nucleated RBC 0.00 Nucleated RBC % 0.0 Sodium 138 Potassium 3.3 L Chloride 106 Carbon Dioxide 21 Anion Gap 11.0 BUN 18 Creatinine 1.2 Estimated GFR (MDRD) 47 L Glucose 157 H Calcium 10.5 H Total Bilirubin 0.5 AST 13 ALT 9 L Alkaline Phosphatase 52 Total Protein 6.8 Albumin 4.7 Globulin 2.1 Albumin/Globulin Ratio 2.2 Lipase 70 Urine Color YELLOW Urine Clarity CLEAR Urine pH 6.0 Ur Specific [place] 1.025 Urine Protein NEGATIVE Urine Glucose (UA) NEGATIVE Urine Ketones NEGATIVE Urine Occult Blood NEGATIVE Urine Nitrite NEGATIVE Urine Bilirubin NEGATIVE Urine Urobilinogen 0.2 (NORMAL) Ur Leukocyte Esterase NEGATIVE Ur Microscopic Review NOT INDICATED Urine Culture Comments NOT INDICATED PD Medical Decision Making - ED course ED course: 53yF with recent dx of multiple kidney stones p/w R flank pain radiating to the front X 1 h. patient passed a large 7mm kidney stone in toilet while in the ED. cbc, abdominal panel, u/a are normal. ivf, toradol, zofran ordered with improvement in pain and vomiting. ct a/p shows 2mm R UVJ stone with moderate hydroureteronephrosis. Normal kidney function, normal u/a. Pain well controlled after passing the larger stone. Plan to f/u outpatient urology. return precautions given. Departure - Departure Disposition: 01 Home, Self Care Clinical Impression: Kidney stones, Vomiting Condition: Stable Instructions: Kidney Stones Comments: You were seen in the ED for kidney stones. You have a 2mm at the right ureterovesicular junction, which means you are about to urinate it out. Your kidney function and urine tests were normal. Please follow up with outpatient urology. return to the ED for new or worsening symptoms or other concerns. Forms: PCP List
[2024-02-01] MEDS: ONDANSETRON 4 MG/2 ML VIAL IVP STA (20:13)
[2024-02-01] MEDS: iohexoL-300 100 ML VIAL IVP ONE (20:22)
--- NOTE | 2024-02-01 20:33 | CT Report ---
PROCEDURE: Abdomen/Pelvis W INDICATIONS: RLQ pain CONTRAST: 100 ML OMNI 300 TECHNIQUE: After the administration of intravenous contrast, a CT scan of the abdomen and pelvis was performed. Images were recorded and evaluated at appropriate window settings. Reformats: coronal and sagittal. F or radiation dose reduction, the following was used: automated exposure control, adjustment of mA and /or kV according to patient size. COMPARISON: CT 01/18/2022 FINDINGS: Image quality: Diagnostic. Lower chest: Suspected slipped Katie fundoplication, resulting in a small hiatal hernia. Liver: No solid mass. Gallbladder: No radiopaque stones or wall thickening. Biliary tree: No intrahepatic or extrahepatic dilation, accounting for age. Spleen: No splenomegaly. Pancreas: No pancreatic ductal dilation. Adrenals: No adrenal nodule. Kidneys and ureters: Obstructing 2 mm stone in the right UVJ, resulting in moderate upstream hydronep hrosis and hydroureter, delayed nephrogram and right-sided perinephric fat stranding. Stomach, bowel and peritoneum: No gastric or small bowel dilation. No abnormal wall thickening. No pa thologic free fluid. Normal appendix. Lymph nodes: No central or retroperitoneal adenopathy. Vessels: No infrarenal aortic aneurysm. Patent portal vein. PELVIS Reproductive organs: Unremarkable. Bladder: No abnormal wall thickening, accounting for underdistention. Pelvic lymph nodes: No pelvic adenopathy by size criteria. Bones: No aggressive osseous abnormality. Other: Small inguinal hernias containing fat. IMPRESSION: Obstructing 2 mm stone in the right UVJ, resulting in moderate hydronephrosis, hydroureter and delaye d nephrogram. Normal appendix. Suspected slipped Katie fundoplication. Correlate with surgical history. Reviewed by: Anderson Avery MD on 02/01/2024 8:32 PM PDT Approved by: Anderson Avery MD on 02/01/2024 8:32 PM PDT Station ID: [id number]
[2024-02-01] MEDS: oxyCODONE/ACET 5/325 Prepack 4 PO STA (21:43)
[2024-02-01 22:29] VITALS: BP 140/81; O2SAT 97
== END 2024-02-01 22:23 | disposition home or self-care (01) ==
LOC: ED 18:34
DX: F17.200 Nicotine dependence, unspecified, uncomplicated (principal); N13.2 Hydronephrosis with renal and ureteral calculous obstruction
CPT/HCPCS: 36415; 74177; 80053; 81003; 83690; 85025; 96374; 96375; 99284; Q9967; 81001; 87086

== ENCOUNTER 2024-02-07 08:00 | Outpatient (CLI) | payer OTHER | END 2024-02-07 23:59 | disposition home or self-care (01) | LOC: LAB 08:00 | PROVIDERS: ATTEND Urology | DX: N20.0 Calculus of kidney (principal) | CPT/HCPCS: 82365 ==

== ENCOUNTER 2024-02-22 09:32 | Outpatient (CLI) | payer OTHER ==
[2024-02-22 09:45] LABS: BASOPHILS % (AUTO) 0.5 %; EOSINOPHILS % (AUTO) 0.6 %; HCT - HEMATOCRIT 44.1 % (37.0-47.0); LYMPHOCYTES # (AUTO) 1.3 10^3/uL (1.5-3.5); LYMPHOCYTES % (AUTO) 19.8 %; MEAN CORPUSCULAR HEMOGLOBIN 31.3 pg (27.0-31.0); MEAN CORPUSCULAR HGB CONC 31.7 g/dL (32.0-36.0); MEAN CORPUSCULAR VOLUME 98.7 fL (81.0-99.0); MEAN PLATELET VOLUME 11.5 fL (7.9-10.8); MONOCYTES # (AUTO) 0.5 10^3/uL (0.0-1.0); MONOCYTES % (AUTO) 7.1 %; NEUTROPHILS # (AUTO) 4.8 10^3/uL (1.5-6.6); NEUTROPHILS % (AUTO) 71.7 %; PLT - PLATELET COUNT 197 10^3/uL (130-450); RED BLOOD COUNT 4.47 10^6/uL (4.20-5.40); RED CELL DISTRIBUTION WIDTH 12.7 % (12.0-15.0); WHITE BLOOD COUNT 6.6 x10^3/uL (4.8-10.8)
[2024-02-22 10:02] LABS: CHOL/HDL RATIO 4.2 (<4.4); CHOLESTEROL 270 mg/dL; HDL CHOLESTEROL 64 mg/dL; LDL CHOLESTEROL,CALCULATED 146 mg/dL; LDL/HDL RATIO 2.3 (<4.4); TRIGLYCERIDES 299 mg/dL (48-352); URIC ACID 5.2 mg/dL (2.3-6.6); VLDL CHOLESTEROL 60 mg/dL
[2024-02-22 10:13] LABS: ALBUMIN 4.8 g/dL (3.2-5.5); ALBUMIN/GLOBULIN RATIO 1.8 (1.0-2.2); ALKALINE PHOSPHATASE 60 IU/L (42-121); ALT ALANINE AMINOTRANSFERASE 9 IU/L (10-60); AST ASPARTATE AMINOTRANSFERASE 13 IU/L (10-42); BILIRUBIN,TOTAL 0.6 mg/dL (0.2-1.0); BUN - BLOOD UREA NITROGEN 14 mg/dL (6-20); CALCIUM 10.8 mg/dL (8.5-10.3); CARBON DIOXIDE - CO2 27 mmol/L (21-32); CHLORIDE 105 mmol/L (101-111); CREATININE 0.8 mg/dL (0.6-1.3); GFR - MDRD 75 (>89); GLUCOSE 116 mg/dL (74-104); POTASSIUM 4.2 mmol/L (3.5-4.5); SODIUM 138 mmol/L (135-145); TOTAL PROTEIN 7.4 g/dL (6.4-8.9)
[2024-02-22 10:25] LABS: THYROID STIMULATING HORMONE 3.53 uIU/mL (0.34-5.60)
[2024-02-22 11:40] LABS: ESTIMATED AVERAGE GLUCOSE 108 mg/dL (70-100); HEMOGLOBIN A1c% 5.4 % (4.27-6.07)
== END 2024-02-22 09:33 | disposition home or self-care (01) ==
LOC: LAB 09:32
PROVIDERS: ATTEND Registered Nurse
DX: R73.9 Hyperglycemia, unspecified (principal); M79.672 Pain in left foot; Z13.228 Encounter for screening for other metabolic disorders; Z13.220 Encounter for screening for lipoid disorders; Z13.29 Encounter for screening for other suspected endocrine disorder; Z13.0 Encounter for screening for diseases of the blood and blood-forming organs and certain disorders involving the immune mechanism
CPT/HCPCS: 36415; 80053; 80061; 83036; 83721; 84443; 84550; 85025

== ENCOUNTER 2024-02-22 09:47 | Outpatient (CLI) | payer OTHER ==
--- NOTE | 2024-02-22 22:17 | XRAY Report ---
PROCEDURE: Foot 1-2V LT INDICATIONS: LEFT FOOT PAIN TECHNIQUE: 2 views of the foot were acquired. COMPARISON: 01/20/2023 FINDINGS: Bones: No acute fractures or dislocations. No suspicious bony lesions. Stable appearance of planta r calcaneal and retrocalcaneal enthesophytes. Mild pes planus. Soft tissues: No tibiotalar joint effusion. Achilles tendon appears normal. IMPRESSION: Left foot without acute fracture. Mild pes planus. Prominent plantar calcaneal and retrocalcaneal enthesophytes. Reviewed by: Barrington Macias MD on 02/22/2024 10:16 PM PDT Approved by: Barrington Macias MD on 02/22/2024 10:16 PM PDT Station ID: [id number]
== END 2024-02-22 09:48 | disposition home or self-care (01) ==
LOC: DI 09:47
PROVIDERS: ATTEND Registered Nurse
DX: M21.42 Flat foot [pes planus] (acquired), left foot (principal); M77.32 Calcaneal spur, left foot; M25.775 Osteophyte, left foot; R73.9 Hyperglycemia, unspecified; Z13.228 Encounter for screening for other metabolic disorders; Z13.220 Encounter for screening for lipoid disorders; Z13.29 Encounter for screening for other suspected endocrine disorder; Z13.0 Encounter for screening for diseases of the blood and blood-forming organs and certain disorders involving the immune mechanism
CPT/HCPCS: 36415; 80053; 80061; 83036; 83721; 84443; 84550; 85025

== ENCOUNTER 2024-02-26 13:16 | Outpatient (CLI) | payer OTHER | END 2024-02-26 13:17 | disposition home or self-care (01) | LOC: LAB.S 13:16 | PROVIDERS: ATTEND Registered Nurse | DX: E83.52 Hypercalcemia (principal) | CPT/HCPCS: 36415; 81599; 82306; 82330; 82652; 83970 ==

== ENCOUNTER 2024-03-20 09:56 | Emergency (ER) | payer OTHER ==
[2024-03-20 11:04] LABS: BASOPHILS % (AUTO) 0.5 %; EOSINOPHILS % (AUTO) 0.5 %; HCT - HEMATOCRIT 44.6 % (37.0-47.0); HGB - HEMOGLOBIN 14.7 g/dL (12.0-16.0); LYMPHOCYTES # (AUTO) 1.2 10^3/uL (1.5-3.5); LYMPHOCYTES % (AUTO) 14.2 %; MEAN PLATELET VOLUME 11.7 fL (7.9-10.8); MONOCYTES # (AUTO) 0.4 10^3/uL (0.0-1.0); MONOCYTES % (AUTO) 5.1 %; NEUTROPHILS # (AUTO) 6.8 10^3/uL (1.5-6.6); NEUTROPHILS % (AUTO) 79.4 %; PLT - PLATELET COUNT 202 10^3/uL (130-450); RED CELL DISTRIBUTION WIDTH 13.2 % (12.0-15.0); WHITE BLOOD COUNT 8.6 x10^3/uL (4.8-10.8)
[2024-03-20 11:12] LABS: BILIRUBIN,URINE NEGATIVE (NEGATIVE); GLUCOSE, URINE (UA) NEGATIVE (NEGATIVE); KETONES,URINE (UA) NEGATIVE (NEGATIVE); LEUKOCYTE ESTERASE, URINE NEGATIVE (NEGATIVE); NITRITE,URINE NEGATIVE (NEGATIVE); OCCULT BLOOD,URINE NEGATIVE (NEGATIVE); PH,URINE 5.5 PH (5.0-7.5); PROTEIN,URINE NEGATIVE (NEGATIVE); UROBILINOGEN,URINE 0.2 (NORMAL) E.U./dL (NORMAL)
[2024-03-20 11:13] LABS: CLARITY,URINE CLEAR (CLEAR)
[2024-03-20 11:26] LABS: ALBUMIN 4.8 g/dL (3.2-5.5); ALBUMIN/GLOBULIN RATIO 1.7 (1.0-2.2); CALCIUM 10.9 mg/dL (8.5-10.3); CREATININE 0.9 mg/dL (0.6-1.3); POTASSIUM 3.7 mmol/L (3.5-4.5); TOTAL PROTEIN 7.6 g/dL (6.4-8.9)
--- NOTE | 2024-03-20 11:41 | ED Physician Documentation ---
PD HPI ABD PAIN - Stated complaint Stated Complaint: ABD PX,NAUSEA - Chief complaint Chief Complaint: Abd Pain - History obtained from History obtained from: Patient, Family - Additional information Additional information: 54-year-old female presented with sudden onset of epigastric pain radiating up into her neck as a burning sensation started this morning. Patient states she has A history of severe GERD but has had a fundoplication and hiatal hernia surgery in had no symptoms since that until sudden onset of discomfort this morning. Pain is a sharp burning pain in the midepigastrium and it makes her feel as though she needs to vomit but she cannot as she is burping frequently. She has had some diarrhea this morning, no constipation, no other abdominal pain. She denies any chest pain or difficulty breathing. She has not had a fever. Patient does not take any NSAIDs but does drink alcohol on a regular basis, 4+ drinks and night. She does not take any PPI. Review of Systems Constitutional: reports: Reviewed and negative Eyes: reports: Reviewed and negative Ears: reports: Reviewed and negative Nose: reports: Reviewed and negative Throat: reports: Reviewed and negative Cardiac: reports: Reviewed and negative Respiratory: reports: Reviewed and negative GI: reports: Abdominal Pain, Nausea : reports: Reviewed and negative Skin: reports: Reviewed and negative Musculoskeletal: reports: Reviewed and negative PD PAST MEDICAL HISTORY - Past Medical History Past Medical History: Yes Cardiovascular: None Respiratory: None Neuro: Migraines Endocrine/Autoimmune: HyPOthyroidism, Other GI: Diverticulitis, 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, Kidney stones HEENT: None Psych: Claustrophobia Musculoskeletal: None Derm: None - Past Surgical History Past Surgical History: Yes General: Hiatal hernia repair, Colonoscopy, EGD /SUPERVISOR PAINTING: section, Hysterectomy - Present Medications Home Medications: Ambulatory Orders Medication Instructions Recorded Confirmed Levothyroxine [Synthroid] 137 mcg PO QDAC 09/26/01/03/18 Cefdinir 300 mg PO BID #20 cap 08/06/22 Ondansetron Odt [Zofran Odt] 4 mg TL Q6H PRN #10 tablet 02/01/24 Oxycodone HCl/Acetaminophen 1 each PO Q4H PRN #8 tablet 02/01/24 [Percocet 5-325 mg Tablet] Tamsulosin [Flomax] 0.4 mg PO DAILY 14 Days #14 tab 02/01/24 ONDANSETRON ODT Prepack 2 [ZOFRAN 4 mg TL Q6H #10 tablet 03/20/24 ODT Prepack 2] Omeprazole 40 mg PO DAILY #30 cap 03/20/24 Sucralfate [Carafate] 1 tablet PO ACHS #60 tablet 03/20/24 - Allergies Allergies/Adverse Reactions: Allergies Allergy/AdvReac Type Severity Reaction Status Date / Time latex Allergy Rash Verified 03/20/24 10:24 Penicillins Allergy Rash Verified 03/20/24 10:24 - Social History Does the pt smoke?: Yes Smoking Status: Current every day smoker Does the pt drink ETOH?: Yes Does the pt have substance abuse?: Yes - Immunizations Immunizations are current?: Yes - POLST Patient has POLST: No PD ED PE NORMAL - Vitals Vital signs reviewed: Yes - General General: Alert and oriented X 3, No acute distress, Well developed/nourished - HEENT HEENT: Atraumatic, Pharynx benign - Neck Neck: Supple, no meningeal sign, No JVD - Cardiac Cardiac: RRR, No murmur - Respiratory Respiratory: No respiratory distress, Clear bilaterally - Abdomen Abdomen: Normal bowel sounds, Soft, Non tender, Non distended - Derm Derm: Normal color, Warm and dry - Neuro Neuro: Alert and oriented X 3 Eye Opening: Spontaneous Motor: Obeys Commands Verbal: Oriented GCS Score: 15 Results - Vitals Vitals: Vital Signs - 24 hr 03/20/24 03/20/24 03/20/24 10:21 12:24 13:58 Temperature 36.8 C 36.6 C Heart Rate 64 94 90 Respiratory 15 14 14 Rate Blood Pressure 148/110 H 129/86 H 136/81 H O2 Saturation 100 98 98 Oxygen O2 Source Room air - Labs Labs: Laboratory Tests 03/20/24 03/20/24 03/20/24 10:26 10:26 10:26 WBC 8.6 RBC 4.60 Hgb 14.7 Hct 44.6 MCV 97.0 MCH 32.0 H MCHC 33.0 RDW 13.2 Plt Count 202 MPV 11.7 H Neut # (Auto) 6.8 H Lymph # (Auto) 1.2 L [place] # (Auto) 0.4 Eos # (Auto) 0.0 Baso # (Auto) 0.0 Absolute Nucleated RBC 0.00 Nucleated RBC % 0.0 Sodium 137 Potassium 3.7 Chloride 106 Carbon Dioxide 22 Anion Gap 9.0 BUN 11 Creatinine 0.9 Estimated GFR (MDRD) 65 L Glucose 137 H Calcium 10.9 H Total Bilirubin 1.0 AST 15 ALT 12 Alkaline Phosphatase 62 Total Protein 7.6 Albumin 4.8 Globulin 2.8 Albumin/Globulin Ratio 1.7 Lipase 29 Urine Color YELLOW Urine Clarity CLEAR Urine pH 5.5 Ur Specific [place] >=1.030 H Urine Protein NEGATIVE Urine Glucose (UA) NEGATIVE Urine Ketones NEGATIVE Urine Occult Blood NEGATIVE Urine Nitrite NEGATIVE Urine Bilirubin NEGATIVE Urine Urobilinogen 0.2 (NORMAL) Ur Leukocyte Esterase NEGATIVE Ur Microscopic Review NOT INDICATED Urine Culture Comments NOT INDICATED - Rads (name of study) No standard instances Relevant Findings:: Final report received PD Medical Decision Making - ED course Complexity details: reviewed results, re-evaluated patient, considered differential, d/w patient ED course: 54-year-old female presented with epigastric pain as described in HPI. She is well-appearing here on physical exam, afebrile nontoxic in no acute distress. Lab work was obtained which is reassuring, she has no leukocytosis, stable liver and kidney function, normal lipase. On exam the pain is epigastric pain feels very similar to prior bouts of severe GERD which patient has had in the past prior to her fundoplication surgery. There is concern that she may have developed the alcoholic gastritis as she does not drink regular alcohol, versus a failure of her Katie fundoplication. I obtained a CT scan that does unfortunately show that she has a slipped Katie fundoplication that this was present on her last CT last month likely now causing her to be symptomatic. Certainly day Daily alcohol use is not helpful and she was encouraged to cut back on this. Will resume her PPI and start her on Carafate temporarily until she can get into see GI and follow back up with her surgeon for her Katie fundoplication. She will likely need to have this repaired to help with her symptoms. She is feeling substantially better after receiving Protonix here in the emergency department as well as Carafate and Zofran. She is stable for discharge home, dietary recommendations discussed. Departure - Departure Disposition: 01 Home, Self Care Clinical Impression: Slipped Katie fundoplication Gastroesophageal reflux disease Qualifiers: Esophagitis presence: with esophagitis Esophagitis bleeding: without hemorrhage Qualified Code(s): K21.00 - Gastro-esophageal reflux disease with esophagitis, without bleeding Condition: Good Instructions: ED GERD Prescriptions: Sucralfate [Carafate] 1 tablet PO ACHS #60 tablet Omeprazole 40 mg PO DAILY #30 cap ONDANSETRON ODT Prepack 2 [ZOFRAN ODT Prepack 2] 4 mg TL Q6H #10 tablet Comments: You have a slipped Katie fundiplication and will need to follow-up with the surgeon or GI specialist that you saw before.. Please try to make an appointment with them as soon as possible. You may need to have this repaired. In the meantime we will start you back on your omeprazole, and I am also ordering Carafate which may give you some temporary relief. Please resume a bland diet, avoiding alcohol, high-fat foods fried foods spicy foods. It is also important to stay upright for several hours after eating. [facility] in [place]. Forms: PCP List Discharge Date/Time: 03/20/24 13:58
[2024-03-20] MEDS: PANTOPRAZOLE 40 MG VIAL IVP STA (12:01)
[2024-03-20] MEDS: SUCRALFATE 1 GM/10 ML UDC PO STA (12:01)
[2024-03-20] MEDS: ONDANSETRON 4 MG/2 ML VIAL IVP STA (12:01)
[2024-03-20] MEDS ORDERED: iohexoL-300 100 ML VIAL ONE (12:01)
--- NOTE | 2024-03-20 13:05 | CT Report ---
PROCEDURE: Abdomen/Pelvis W INDICATIONS: severe epigastric pain CONTRAST: Omni 300 100ml TECHNIQUE: After the administration of intravenous contrast, a CT scan of the abdomen and pelvis was performed. Images were recorded and evaluated at appropriate window settings. Reformats: coronal and sagittal. F or radiation dose reduction, the following was used: automated exposure control, adjustment of mA and /or kV according to patient size. COMPARISON: CT abdomen pelvis 02/01/2024 FINDINGS: Image quality: Diagnostic. Lower chest: Unremarkable. Liver: No solid mass. There is enlargement steatosis measuring 23.1 cm. Gallbladder: Unremarkable. Biliary tree: No intrahepatic or extrahepatic dilation, accounting for age. Spleen: No splenomegaly. Pancreas: No pancreatic ductal dilation. Adrenals: No adrenal nodule. Kidneys and ureters: No hydronephrosis. No renal cystic lesion which requires follow up. No solid mas s. Previous right UVJ stone is no longer visualized. Stomach, bowel and peritoneum: No gastric or small bowel dilation. No abnormal wall thickening. No pa thologic free fluid. Hiatal hernia is present. There is mild thickening at the gastroesophageal junct ion near the anastomotic sutures. Overall appearance has not changed. Lymph nodes: No central or retroperitoneal adenopathy. Vessels: No infrarenal aortic aneurysm. Patent portal vein. PELVIS Reproductive organs: Unremarkable. Bladder: No abnormal wall thickening, accounting for underdistention. Pelvic lymph nodes: No pelvic adenopathy by size criteria. Bones: No aggressive osseous abnormality. Other: No significant ventral or inguinal hernia. IMPRESSION: Stable interval exam demonstrating thickening at the gastroesophageal junction concerning for slipped Katie fundoplication. Recommend correlation with surgical history and endoscopy is recommended. Hepatomegaly with steatosis. Reviewed by: Hailey Rockwell MD on 03/20/2024 1:03 PM PDT Approved by: Hailey Rockwell MD on 03/20/2024 1:03 PM PDT Station ID: [id number]
[2024-03-20 14:00] VITALS: BP 136/81; O2SAT 98
[2024-03-20] MEDS: iohexoL-300 100 ML VIAL IVP ONE (14:22)
== END 2024-03-20 13:58 | disposition home or self-care (01) ==
LOC: ED 09:56
DX: K21.00 Gastro-esophageal reflux disease with esophagitis, without bleeding (principal); T85.591A Other mechanical complication of esophageal anti-reflux device, initial encounter; F17.200 Nicotine dependence, unspecified, uncomplicated
CPT/HCPCS: 36415; 74177; 80053; 81003; 83690; 85025; 96374; 99284; A9270; Q9967; 81001; 87086

== ENCOUNTER 2024-06-04 09:14 | Outpatient (CLI) | payer OTHER ==
--- NOTE | 2024-06-04 20:28 | Ultrasound Report ---
PROCEDURE: Abdomen Limited INDICATIONS: EPIGASTRIC PAIN TECHNIQUE: Real-time focused scanning was performed of the abdomen, with image documentation. COMPARISONS: 03/20/2024 and 02/01/2024. FINDINGS: Liver: Liver is enlarged and measures 19 cm in length. Heterogeneously echogenic liver parenchyma is seen. No discrete hepatic lesion.. Gallbladder: No gallstones, sludge, wall thickening or pericholecystic edema. Biliary ducts: Intrahepatic bile ducts are non-dilated. Extrahepatic bile duct caliber measures 3.7 mm. Normal is 6-7 mm or less in diameter, or 10 mm or less post-cholecystectomy. Pancreas: Visualized portions of the pancreas are sonographically normal. Right kidney: Normal in size and echotexture. Right kidney measures 10.8 cm long. No hydronephrosis or nephrolithiasis. No solid masses. No complex renal cystic lesions which require follow-up. IVC: Intrahepatic inferior vena cava is patent. Miscellaneous: No free abdominal fluid. IMPRESSION: 1. Mild hepatomegaly and hepatic steatosis. No discrete hepatic lesion. 2. Rest of the exam is unremarkable. Reviewed by: Naldo Owen MD on 06/04/2024 8:26 PM PDT Approved by: Naldo Owen MD on 06/04/2024 8:26 PM PDT Station ID: [id number]
== END 2024-06-04 09:15 | disposition home or self-care (01) ==
LOC: DI 09:14
PROVIDERS: ATTEND Surgery
DX: R10.13 Epigastric pain (principal); R16.0 Hepatomegaly, not elsewhere classified; K76.0 Fatty (change of) liver, not elsewhere classified